=== PATIENT | female | born 1960 | race Caucasian/White ===

== ENCOUNTER 2017-08-18 10:30 | Outpatient (RCR) | payer MEDICAID, SELFPAY ==
--- NOTE | 2017-07-21 13:00 | HP.PTEVAL_ITS ---
Patient's Visit Information JERZY RAMSEY is a 57 year old F referred to Physical Therapy by Ronaldo Hunt with a diagnosis of 3 mon s/p bunionectomy. Date of Evaluation: 07/21/17 Physical Therapist: Sergey Warner DPT, OC - Visit Plan Frequency: 3x /Week Duration: 4-6 Weeks Plan: 3x/week x 4-6 weeks. ROM and mobs to big toe and ankle DF. Strength ankle R and work on weight bearing, weaning out of boot with walker and then wean off walker ...GAIT training, functional transfers and LE strength. - Subjective Subjective: Had surgery for bunionectomy R foot April 29. in boot or cast ever since. Can wean out of boot ... Needs walker with wheels in boot a it is heavy. Have Xray and looks good. Wants to return to wrok at [place] august 27, has been out for 4 months. No foot exercise. Pain is non existent except knee pain R as boot is heavy. Did not need walker prior to surgery. Sleep is OK. Needs help in the form of extra time and help, Put pajamas in last night I. Puts on shoes and boot I. Hobbies include watching TV and can do that. Has not tried to cook and clean. Has steps 3 to enter and 5 inside with 2 rails to hold and did OK just slow. - Objective Walks with ortho boot on R LE slowly but mod I with wh walker. Without boot is slow and hesitant even to stand but can take short 4 inch steps on own with walker. Needs UE to transfer out of chair. Pt has very little confidence with walking without boot. did 4 steps without boot or walker today but they are short and not functional at this point. R ankle AROM -3 DF to 45 PF to 25 inv to 12 ev. L is 4 DF to 50 PF to 30 inv to 15 ev. Strength testing is 4- L ankle and 3+ R ankle. Big toe lacks extension to 10 degrees on R and painful to OP. Painful to resist flex and ext big toe.. metatarsals on R medial foot very stiff vs L.. Knee and hip AROM WFL and strength at 4-/5. Has some R knee pain wiht ambulation in boot. Incision is healed , shows dry skin but no unusual redness or swelling. Pt feels like cannot get shoe over foot or put on boot herself but does this today without help. Poor confidence in her abilities. Avoids WB R in unsupported stance until verbally cued. - Goals Goal 1:: Functional AROM big toe and R ankle without pain Goal Time Frame: 4-6 Weeks Goal 2:: Walk without AD without boot with no pain community distance I. Goal Time Frame: 4-6 Weeks Goal 3:: steps reciprocally with one rail Goal Time Frame: 4-6 Weeks Goal 4:: Exit chair without use UE Goal Time Frame: 4-6 Weeks Goal 5:: Plan to return to work safely Goal Time Frame: 4-6 Weeks Goal 6:: FGA Goal Time Frame: 4-6 Weeks - Rehabilitation Potential Physical Therapy Diagnosis: s/p bunionectomy with poor confidence with gait and stiffness in foot. Rehabilitation Potential: Fair - Anticipated Interventions Patient/Client Instruction: Educate patient on: Condition, Plan of Care For the Purpose of:: To decrease pain, To increase ROM, To improve gait and locomotor functions Therapeutic Exercise to Include: Strength training, Flexibilty training, Gait and locomotor training, Passive ROM, Active ROM For the Purpose of:: To decrease pain, To increase ROM, To improve ability of physical actions for home/community/work/leisure, To improve gait and locomotor functions, To improve safety Manual Therapy Techniques to Include: Mobilization, Soft tissue mobilization For the Purpose of:: To improve ability of physical actions for home/community/ work/leisure, To improve gait and locomotor functions Cryotherapy (ice pack, ice massage): Yes Thermo therapy (hot pack): Yes For the Purpose of:: To improve ability of physical actions for home/community/ work/leisure, To improve gait and locomotor functions Thank you for the opportunity to evaluate your patient. For Medicare and Medicare HMO plans, please review the plan of care and approve it. It will need to be FAXED BACK to us at [phone] for Medicare purposes. Please let me know if there are questions or concerns regarding this plan of care. Physician Signature: Date:
--- NOTE | 2017-08-18 10:43 | HP.PTDCSUM_ITS ---
HP - PT D/C Summary It has been my pleasure to treat JERZY RAMSEY under orders from Ronaldo Hunt , for the diagnosis of 3 month s/p bunionectomy Right for a total of 12 visit(s) . Discharge Date: 08/18/17 Please see the following information for a summary of their discharge status. - Subjective Subjective: Tolerating workout well with minor increase in swelling. Doing ROM at home. No pain for a while. Sleeping OK. Wants to be released to work on the . Pulling on band at home and ROM daily. Activities are normal at home but scary on steps, needs one rail. No boot in a long time. Walked around [place] yesterday without problem. - Objective Objective/Function: heel raises are painfree, Walking is good and without antalgia. Steps reciprocal with one rail, descending lacks confidence. 1 degree DF today. Good strength in all motions, toe extends without pain to functional ROM. OVERALL DOING WELL AND READY TO BE DONE WITH PT, WILLC ONTINUE VIA HEP. - Goals Goal 1:: Functional AROM big toe and R ankle without pain Goal Progress: Goal Met Goal 2:: Walk without AD without boot with no pain community distance I. Goal Progress: Goal Met Goal 3:: steps reciprocally with one rail Goal Progress: Goal Met Goal 4:: Exit chair without use UE Goal Progress: needs UE due to girth Goal 5:: Plan to return to work safely Goal 6:: FGA Goal Progress: Goal Met - Plan Plan: D/C - D/C Information Discharge Comments: Pt to doctor next week and recommend gradual return to work if doctor finds approp. If there are questions or concerns regarding this patient's physical therapy, please feel free to call me at [phone]. Thank you for the referral of this patient. Sincerely, Sergey Warner, DPT, OC
== END 2017-08-18 19:00 | disposition home or self-care (01) ==
LOC: PT 10:30
PROVIDERS: Family Provider Nurse Practitioner Family; PCP Nurse Practitioner Family; Visit Provider Podiatrist Foot & Ankle Surgery
DX: Z98.890 Other specified postprocedural states (principal)
CPT/HCPCS: 97110; 97116; 97140; 97162; 97530

== ENCOUNTER → 2018-04-05 10:11 | Outpatient (CLI) | payer MEDICAID, SELFPAY ==
[2018-03-13 13:05] VITALS: BMI 42.5
--- NOTE | 2018-04-05 10:14 | BI_ITS ---
MAMMOGRAPHY - BILATERAL SCREENING 3-D MARCEL SYNTHESIS REASON FOR EXAM: Female, 58 years old. Bilateral Screening 3-D tomosynthesis PERTINENT HISTORY: Family history of breast cancer in mother and her eighth decade. Multiple benign biopsies. History of left breast pain.. TECHNIQUE: 2-D mammograms and 3-D Marcel synthesis of the breast (s) were performed. CAD was performed. COMPARISON: June 09, 2016, June 19, 2015 FINDINGS: The breast composition is almost entirely fat. There are stable lymph nodes. Scattered benign calcifications are seen. No dense spiculated masses or suspicious microcalcifications are identified. No architectural distortion is identified. There is no skin thickening or retraction. There has been no significant change since the prior study. BI/SCREENING MAMM (CAD), BILAT IMPRESSION: No mammographic signs of malignancy. Routine yearly mammograms recommended. ASSESSMENT CATEGORY: BIRADS Category 2: Benign. A letter regarding these results will be sent to the patient by the facility within 30 days. FOLLOW UP RECOMMENDATION: Yearly follow up mammogram recommended. (A) Approximately 10% of breast cancers are not detected by mammography. A normal mammogram should not delay biopsy of a clinically suspicious abnormality. Electronically Signed: Andre Ayala MD at 11:04 EST , Service support ,
== END ==
PROVIDERS: Family Provider Nurse Practitioner Family; PCP Nurse Practitioner Family
DX: Z12.31 Encounter for screening mammogram for malignant neoplasm of breast (principal)
CPT/HCPCS: 77063; 77067

== ENCOUNTER → 2018-05-08 10:13 | Outpatient (CLI) | payer MEDICAID, SELFPAY ==
[2018-05-08 10:08] VITALS: BMI 41.9
--- NOTE | 2018-05-08 10:15 | RAD_ITS ---
STUDY: X-RAY - RIGHT KNEE REASON FOR EXAM: Female, 58 years old. Pain without injury TECHNIQUE: 4 view(s) of the knee. COMPARISON: None. FINDINGS: Normal visualized distal femur. Normal visualized proximal tibia and fibula. Normal proximal tibiofibular articulation. There is mild degenerative arthrosis of the medial femorotibial compartment. There is mild degenerative arthrosis of the lateral femorotibial compartment. There is severe degenerative arthrosis of the patellofemoral articulation. Patella also. The soft tissue structures are unremarkable. RAD/Knee 4 or More Views IMPRESSION: Patella catherine and severe patellofemoral osteoarthritis. Mild medial and lateral compartment osteoarthritis. Electronically Signed: Servando Cuba MD at 10:37 EST Tel , Service support ,
== END ==
PROVIDERS: Family Provider Nurse Practitioner Family; PCP Nurse Practitioner Family; Referring Provider Orthopaedic Surgery; Visit Provider Orthopaedic Surgery
DX: M25.561 Pain in right knee (principal)
CPT/HCPCS: 73564

== ENCOUNTER 2018-06-03 13:22 | Emergency (ER) | payer MEDICAID, SELFPAY ==
[2018-06-03 12:52] VITALS: BMI 41.9
[2018-06-03 13:24] VITALS: BP 158/88; PULSE 69; RESP 18; TEMP 37.1; O2SAT 100; BMI 41.6
--- NOTE | 2018-06-03 13:57 | RAD_ITS ---
STUDY: X-RAY CHEST REASON FOR EXAM: Female, 58 years old. Back pain TECHNIQUE: PA and lateral views of the chest. COMPARISON: 02/01/2016 FINDINGS: EKG leads project over the chest. The lungs are clear and expanded. There is no demonstrated pleural abnormality. Normal size heart. Normal mediastinum and samy. Normal visualized pulmonary arteries. Normal visualized aortic arch and descending thoracic aorta. There are diffuse degenerative changes of the visualized thoracic spine. Normal visualized ribs, clavicles, and shoulders. There is no demonstrated abnormality of the visualized soft tissue structures of the upper abdomen. RAD/Chest PA and Lateral IMPRESSION: Stable, nonacute x-ray examination of the chest. Electronically Signed: Torrey Cho MD at 15:24 EST , Service support ,
--- NOTE | 2018-06-03 13:57 | EKG12_ITS ---
Test Reason : SHOULDER BLADE PAIN Blood Pressure : / mmHG Vent. Rate : 064 BPM Atrial Rate : 064 BPM P-R Int : 150 ms QRS Dur : 096 ms QT Int : 442 ms P-R-T Axes : 052 009 022 degrees QTc Int : 455 ms Normal sinus rhythm Normal ECG Confirmed by MONICA SORTO, OMAYRA ([id number]), sports editor PRUDENCE HOGAN ([id number]) on 06/06/2018 4:50:33 PM Referred By: MARY KATE Confirmed By:OMAYRA ANDERSON MD
[2018-06-03] MEDS: Ketorolac 30 MG/ML Syringe IV (14:34)
[2018-06-03 14:59] LABS: Absolute Lymphocyte Count 2.06 X10^3/ul (0.83-4.51); Absolute Neutrophil Count 4.4 X10^3/uL (2.0-7.7); Basophil# 0.06 X10^3/uL; Basophil% 0.8 % (0-1); Eosinophil# 0.38 X10^3/uL; Eosinophils% 5.1 % (0-5); Lymphocyte # 2.06 X10^3/ul (4.0); Lymphocyte % 27.5 % (19-41); Mean Corp Hgb Conc 32.6 g/gl (32-36); Mean Corpuscular Hgb 28.9 pg (27.0-32.0); Mean Corpuscular Volume 88.7 fL (81-99); Mean Platelet Vol. 9.7 fl (6.2-12.0); Monocyte# 0.53 X10^3/uL; Monocyte% 7.1 % (0-10); Neutrophil # 4.44 X10^3/uL (2.7-7.7); Neutrophil % 59.2 % (47-70); Platelet Count 264 K/mm3 (150-450); RBC Distribution Width CV 13.5 % (11.6-14.6); RBC Distribution Width SD 43.8 fl (35.1-43.9); Red Blood Count 4.85 M/mm3 (4.2-5.4); White Blood Count 7.5 K/mm3 (4.4-11.0)
[2018-06-03 15:04] LABS: POSITIVE COUNT NO; POSITIVE DIFFERENTIAL NO; POSITIVE MORPHOLOGY NO
[2018-06-03 15:11] LABS: D-Dimer Quantitative (DVT/PE) 0.38 FEU/ug/m (0.27-0.49)
[2018-06-03 15:14] LABS: ALB/GLOB Ratio 1.1 RATIO (0.9-2.4); AST(SGOT) 28 U/L (15-37); Alanine Aminotransfer ALT/SGPT 27 U/L (13-56); Albumin, Serum 4.1 g/dL (3.2-5.0); Alkaline Phosphatase 109 U/L (45-117); Anion Gap 8 (5-15); BUN 18 mg/dL (7-18); BUN/Creat Ratio 18.5 RATIO (10-20); Calcium,Total 9.5 mg/dL (8.5-10.1); Chloride 103 mmol/L (98-107); Creatinine, Serum 0.97 mg/dL (0.55-1.02); EST Glomerular Filtration Rate 63 mL/min (>60); Est Glom Filt Rate - Afr Amer 76 mL/min (>60); Estimated Creatinine Clearance 67.68 ml/min; Globulin 3.6 g/dL (2.2-4.2); Glucose 88 mg/dL (74-106); Lipase 162 U/L (73-393); Protein, Total 7.7 g/dL (6.4-8.2); Sodium Level 138 mmol/L (136-145)
--- NOTE | 2018-06-03 15:25 | ED.VISSUMM ---
- ER Visit Summary Date of Service: 06/03/18 Chief Complaint: Back pain History of Present Illness: The patient is a 58 F who states that yesterday she began to have a sharp ache in between her shoulder blades. She also noticed slight discomfort in her upper abdomen on the right side. She denies any vomiting or diarrhea. No nausea. History of hypertension high cholesterol and obesity. She went to urgent care and was advised to come to the emergency department. She notes the pain has been constant since yesterday. Physical Examination: Afebrile vital signs stable Gen: Well-nourished well-developed morbidly obese Head: Normocephalic atraumatic Eyes: Perrl EOMI ENT: TMs clear no rhinorrhea moist mucous membranes Neck: Supple no lymphadenopathy no JVD nontender CVS: Regular rate rhythm no murmurs normal S1-S2 Respiratory: No distress clear to auscultation bilaterally chest nontender Abdomen: Soft nontender nondistended normal bowel sounds no masses Back: Nontender Extremity: Nontender no edema Skin: Normal color no rash Neuro: alert orientated ?3 CN II-XII intact normal strength sensation reflexes gait cerebellar Psych: Normal affect normal mood Test Results: EKG showed sinus rhythm at a rate of 64. CBC CMP normal. Troponin negative. D-dimer in the normal range at 0.38. Chest x-ray showed no acute findings. Emergency Department Course and Treatment: Bedside ultrasound of the gallbladder does not demonstrate any obvious cholelithiasis. Patient will be discharged home with supportive care follow-up with primary care. Impression: 1. Acute thoracic back pain 2. Right upper quadrant pain This note was generated with [employer] dictation software. It may contain incorrect words, spelling, and punctuation that were not noted in review of the chart prior to signing ED Disposition - Plan for ED Patient: Disposition: Home or Assisted Living Instructions: ED Neck Back Pain General Referrals: Kylee Doll NP-C [Primary Care Provider] - 3-5 Days if not improving
[2018-06-03 15:51] VITALS: BP 144/80; PULSE 65; RESP 16; O2SAT 98
== END 2018-06-03 15:55 | disposition home or self-care (01) ==
PROVIDERS: Emergency Provider Emergency Medicine; Family Provider Nurse Practitioner Family; PCP Nurse Practitioner Family
DX: M54.6 Pain in thoracic spine (principal); R10.11 Right upper quadrant pain; I10 Essential (primary) hypertension; E78.00 Pure hypercholesterolemia, unspecified; E66.01 Morbid (severe) obesity due to excess calories
CPT/HCPCS: 71046; 80053; 83690; 84484; 85025; 85379; 93005; 96374; 99285; A4216

== ENCOUNTER 2018-06-19 07:44 | Day surgery (SDC) | payer MEDICAID, SELFPAY ==
[2018-05-29 13:09] VITALS: BMI 41.9
[2018-06-19 08:07] VITALS: BP 126/81; PULSE 76; RESP 16; TEMP 36.4; O2SAT 100; BMI 42.2
--- NOTE | 2018-06-19 08:45 | COLBX_PTH ---
PATIENT: JERZY RAMSEY LOC: EN U#:[id number] AGE/SX: 58/F ROOM: RE06/19/[address]: Dr. Ciara Britton MD : [id number] BED: DIS: 06/19/2018 SPEC #: [id number] RECD: 06/19/18 13:19 STATUS: SALLY YAMILET #: [id number] BILL: 06/19/18 08:[address]: Ciara Britton DEPT: SURGICAL PATHOLOGY RECD BY: Tin Howard ENTERED: 06/19/18 13:36 SP TYPE: COLON BX OTHR DR: Kylee Doll, HYDRO PLANT SITE MANAGER-C [facility] Tissues: Sigmoid colon biopsy Procedures: Surgery Specimen Level IV HEADER OPERATION: Colonoscopy (MAC) PRE-OP DIAGNOSIS: History of colon polyps TISSUE SUBMITTED: Sigmoid polyp MICROSCOPIC DIAGNOSIS Sigmoid colon polyp, biopsy: Polypoid fragments of colonic mucosa with focal hyperplastic change suspected. See comment. AM:kimberlyn 06/20/18 COMMENT Neither hypoplastic nor adenomatous change is identified. Clinical correlation is suggested. MICROSCOPIC DESCRIPTION Slides are reviewed. GROSS DESCRIPTION Received in fixative is one container labeled with the patient's name and designated sigmoid polyp. The specimen consists of two irregular fragments of light gracia soft tissue that in aggregate measure 0.6 x 0.2 x 0.1 cm. The specimen is totally submitted in one cassette. / AM:kimberlyn 06/19/18 TC:5 CPT: 77872
[2018-06-19 09:11] VITALS: BP 126/70; BP 126/81; PULSE 68; RESP 18; TEMP 36.8; O2SAT 100
[2018-06-19 09:15] VITALS: BP 118/77; BP 126/81; PULSE 68; RESP 18; O2SAT 100
--- NOTE | 2018-06-19 09:15 | OP.ENDO_ITS ---
06/19/2018 [facility] Re : Colonoscopy procedure for Pattie Grover [facility] This procedure was performed on Tuesday, June 19, 2018. My impressions and recommendations are as follows: Impressions : - Diverticulosis in the sigmoid colon. - One less than 5 mm polyp in the sigmoid colon. - The examination was otherwise normal on direct and retroflexion views. - No specimens collected. Recommendations : - Discharge patient to home. - High fiber diet. - Continue present medications. - Await pathology results. - Repeat colonoscopy in 3 - 5 years for surveillance based on pathology results. My findings are described in the full procedure note, which is enclosed. If I can be of further assistance, please feel free to contact me at Doctor phone number(s): , Work: . Sincerely, MD Ciara Argueta MD 06/19/2018 9:15:10 AM This report has been signed electronically.
[2018-06-19 09:20] VITALS: BP 119/80; BP 126/81; PULSE 67; RESP 18; O2SAT 100
[2018-06-19 09:24] VITALS: BP 118/78; BP 126/81; PULSE 66; RESP 18; TEMP 36.8; O2SAT 100
[2018-06-19 10:05] VITALS: BP 126/81
== END 2018-06-19 09:50 | disposition home or self-care (01) ==
LOC: EN 07:45 → AC 07:46
PROVIDERS: Referring Provider Surgery; Visit Provider Surgery
PROC: 0DJD8ZZ Inspection of Lower Intestinal Tract, Via Natural or Artificial Opening Endoscopic (ICD-10-PCS; CPT 45378; principal; 2018-06-19 08:40)
DX: D12.5 Benign neoplasm of sigmoid colon (principal); K57.30 Diverticulosis of large intestine without perforation or abscess without bleeding; Z86.010 Personal history of colon polyps; Z79.82 Long term (current) use of aspirin; I10 Essential (primary) hypertension; E66.9 Obesity, unspecified; E78.5 Hyperlipidemia, unspecified; Z68.41 Body mass index [BMI] 40.0-44.9, adult
CPT/HCPCS: 45380; 88305; J7120

== ENCOUNTER → 2019-04-06 11:17 | Outpatient (CLI) | payer MEDICAID, SELFPAY ==
[2019-02-05 15:15] VITALS: BMI 42.2
--- NOTE | 2019-04-06 11:22 | BI_ITS ---
MAMMOGRAPHY - BILATERAL SCREENING 3-D TOMOSYNTHESIS REASON FOR EXAM: Female, 59 years old. Routine annual screening mammogram. PERTINENT HISTORY: Family history of breast cancer in mother in a dedicated. Multiple excisional biopsies. TECHNIQUE: 2-D mammograms and 3-D Tomosynthesis of the breast (s) were performed. CAD was performed. COMPARISON: April 05, 2018, April 01, 2017 FINDINGS: The breast composition is almost entirely fat. Scattered benign calcifications are seen. No dense spiculated masses or suspicious microcalcifications are identified. No architectural distortion is identified. There is no skin thickening or retraction. There has been no significant change since the prior study. BI/SCREEN MAMM (CAD) W/MARCEL BILAT IMPRESSION: No mammographic signs of malignancy. Routine yearly mammograms recommended. ASSESSMENT CATEGORY: BIRADS Category 2: Benign. A letter regarding these results will be sent to the patient by the facility within 30 days. FOLLOW UP RECOMMENDATION: Yearly follow up mammogram recommended. (A) Approximately 10% of breast cancers are not detected by mammography. A normal mammogram should not delay biopsy of a clinically suspicious abnormality. Electronically Signed: Andre Ayala MD at 15:39 EST , Service support ,
== END ==
PROVIDERS: Referring Provider Nurse Practitioner Family; Visit Provider Nurse Practitioner Family
DX: Z12.31 Encounter for screening mammogram for malignant neoplasm of breast (principal)
CPT/HCPCS: 77063; 77067

== ENCOUNTER 2019-09-19 14:34 | Emergency (ER) | payer MEDICARE, MEDICAID, SELFPAY ==
[2019-05-10 15:26] VITALS: BMI 41.8
[2019-09-19 14:35] VITALS: BP 141/83; PULSE 80; RESP 18; TEMP 36.5; O2SAT 94; BMI 40.6
[2019-09-19 15:47] VITALS: BP 141/83; PULSE 80; RESP 18; TEMP 36.5; O2SAT 94
--- NOTE | 2019-09-19 15:55 | ED.VIS.GEN ---
History of Present Illness Chief Complaint: Diarrhea Narrative: Patient is a 59-year-old female who presents with diarrhea. She has had diarrhea for 1 week. This is a few episodes a day. She had 3 episodes yesterday and 2 episodes today. She is had a cough for 1 to 2 weeks. No fevers. No chest pain or shortness of breath. No vomiting or nausea. She was seen in her primary care physician's office and was sent here to the emergency department. They were concerned for possible COVID-19 and also thought the patient may need fluids. Patient denies any pain. Patient denies recent hospitalization or antibiotic use. Past Medical History - Allergies and Home Meds Allergies/Adverse Reactions: Allergies adhesive tape Allergy (Severe, Verified 09/19/19 14:37) Rash codeine Allergy (Verified 09/19/19 14:37) Shortness of breath Penicillins Allergy (Verified 09/19/19 14:37) Unknown Primary Care Physician: Kylee Doll NP-C [Primary Care Provider] - Past Medical History: - - Hypertension hyperlipidemia Surgical History: for DUB....no hormone replacement other than OTC, bunions Smoking Status: Never smoker Review of Systems All systems negative except as indicated General: Denies: Fever Cardiovascular: Denies: Chest pain Respiratory: Reports: Cough. Denies: Dyspnea Gastrointestinal: Reports: Diarrhea. Denies: Abdominal pain, Nausea, Vomiting Musculoskeletal: Denies: Myalgias, Arthralgias Skin: Denies: Rash Neurological: Denies: Headache Physical Exam Vital Signs/Narrative: Vital Signs Temp Pulse Resp BP Pulse Ox 09/19/19 15:47 97.7 F L 80 18 141/83 H 94 09/19/19 14:35 97.7 F L 80 18 141/83 H 94 Inital Vital Signs reviewed: Yes General: Well nourished Head: Normocephalic Eyes: EOMI ENT: Moist mucous membranes Neck: Supple Cardiovascular: Regular rate, Regular rhythm Respiratory: No distress, CTA bilaterally Abdomen: Soft, Nontender, Nondistended, Normal bowel sounds Extremities: Nontender Skin: Normal color Neurological: Alert Psychological: Normal affect Diagnostic/Tx/Re-eval Laboratory Results 09/19/19 09/19/19 16:38 16:38 WBC 3.8 L RBC 4.95 Hgb 14.2 Hct 44.0 MCV 88.9 MCH 28.7 MCHC 32.3 RDW Std Deviation 42.0 RDW Coeff of Kevyn 12.9 Plt Count 179 MPV 9.8 Immature Gran % (Auto) 0.300 Neut % (Auto) 55.7 Lymph % (Auto) 33.6 [place] % (Auto) 7.2 Eos % (Auto) 2.7 Baso % (Auto) 0.5 Absolute Neuts (auto) 2.1 Absolute Lymphs (auto) 1.26 Nucleated RBC % 0 Sodium 139 Potassium 2.9 L Chloride 103 Carbon Dioxide 31.0 Anion Gap 5 BUN 12 Creatinine 1.08 H Estim Creat Clear Calc 60.06 Est GFR (MDRD) Af Amer 67 Est GFR (MDRD) Non-Af 56 L BUN/Creatinine Ratio 11.1 Glucose 102 Calcium 9.2 - Medical Decision Making COVID testing was sent. Labs notable for white blood cell count 3.8, potassium 2.9. Patient was given oral potassium. Patient was provided with prescription for short course of oral potassium. I also wrote a prescription for Lomotil. Patient understands to return for new or worsening symptoms otherwise to follow-up as an outpatient and she was discharged home. ED Disposition - Plan for ED Patient: Disposition: Home or Assisted Living Diagnosis: Diarrhea Instructions: Treating Diarrhea Prescriptions: Diphenoxylate HCl/Atropine [Lomotil 2.5-0.025 mg Tablet] 2 tab PO Q6H PRN PRN 2 Days #16 tab PRN Reason: Diarrhea Prescription Printed Referrals: Kylee Doll, SECURITY SYSTEMS ADMINISTRATOR-C [Primary Care Provider] -
[2019-09-19 16:54] LABS: Absolute Lymphocyte Count 1.26 X10^3/uL (0.83-4.51); Absolute Neutrophil Count 2.1 X10^3/uL (2.0-7.7); Basophil# 0.02 X10^3/uL; Basophil% 0.5 % (0-1); Eosinophils% 2.7 % (0-5); Hemoglobin 14.2 g/dL (12.0-15.0); Lymphocyte # 1.26 X10^3/ul (4.0); Lymphocyte % 33.6 % (19-41); Mean Corp Hgb Conc 32.3 g/dL (32-36); Mean Corpuscular Hgb 28.7 pg (27.0-32.0); Mean Corpuscular Volume 88.9 fL (81-99); Mean Platelet Vol. 9.8 fl (6.2-12.0); Monocyte# 0.27 X10^3/uL; Monocyte% 7.2 % (0-10); NRBC Flagged by Analyzer 0 % (0-5); Neutrophil # 2.09 X10^3/uL (2.7-7.7); Neutrophil % 55.7 % (47-70); Platelet Count 179 K/mm3 (150-450); RBC Distribution Width CV 12.9 % (11.6-14.6); Red Blood Count 4.95 M/mm3 (4.2-5.4); White Blood Count 3.8 K/mm3 (4.4-11.0)
[2019-09-19] MEDS: 0.9% Normal Saline 1,000 ML 999 ML IV (16:57)
[2019-09-19 17:07] LABS: Anion Gap 5 (5-15); BUN 12 mg/dL (7-18); BUN/Creat Ratio 11.1 RATIO (10-20); Calcium,Total 9.2 mg/dL (8.5-10.1); Chloride 103 mmol/L (98-107); Creatinine, Serum 1.08 mg/dL (0.55-1.02); EST Glomerular Filtration Rate 56 mL/min (>60); Est Glom Filt Rate - Afr Amer 67 mL/min (>60); Estimated Creatinine Clearance 60.06 ml/min; Glucose 102 mg/dL (74-106); Potassium 2.9 mmol/L (3.5-5.1); Sodium Level 139 mmol/L (136-145)
[2019-09-19 18:15] VITALS: BP 127/77; PULSE 67; RESP 16; TEMP 37.1; O2SAT 98
--- NOTE | 2019-09-20 10:14 | ED.RN ---
Attempted to call pt with covid results. Had to leave a message to call ER back
--- NOTE | 2019-09-20 16:27 | ED.RN ---
pt called with pos results for covid. pt advised that health department will be contacting her
== END 2019-09-19 18:30 | disposition home or self-care (01) ==
PROVIDERS: Emergency Provider Emergency Medicine; PCP Nurse Practitioner Family
DX: R19.7 Diarrhea, unspecified (principal); R05 Cough; I10 Essential (primary) hypertension; E78.5 Hyperlipidemia, unspecified; Z88.0 Allergy status to penicillin
CPT/HCPCS: 80048; 85025; 87635; 96360; 99285; G2023; J7030; U0003

== ENCOUNTER → 2019-10-14 19:20 | Outpatient (CLI) | payer MEDICARE, MEDICAID, SELFPAY ==
[2019-09-19 14:35] VITALS: BMI 40.6
== END ==
PROVIDERS: PCP Nurse Practitioner Family
DX: U07.1 COVID-19 (principal)
CPT/HCPCS: 87635; G2023; U0003

== ENCOUNTER → 2020-02-19 10:08 | Outpatient (CLI) | payer MEDICARE, MEDICAID, SELFPAY ==
[2020-02-19 11:08] LABS: Absolute Lymphocyte Count 1.86 X10^3/uL (0.83-4.51); Absolute Neutrophil Count 5.7 X10^3/uL (2.0-7.7); Basophil% 1.2 % (0-1); Eosinophil# 0.43 X10^3/uL; Hemoglobin 13.8 g/dL (12.0-15.0); Lymphocyte # 1.86 X10^3/ul (4.0); Lymphocyte % 21.5 % (19-41); Mean Corp Hgb Conc 32.1 g/dL (32-36); Mean Corpuscular Hgb 28.7 pg (27.0-32.0); Mean Corpuscular Volume 89.4 fL (81-99); Mean Platelet Vol. 10.1 fl (6.2-12.0); Monocyte# 0.59 X10^3/uL; Monocyte% 6.8 % (0-10); NRBC Flagged by Analyzer 0 % (0-5); Neutrophil # 5.67 X10^3/uL (2.7-7.7); Neutrophil % 65.3 % (47-70); Platelet Count 277 K/mm3 (150-450); RBC Distribution Width CV 12.8 % (11.6-14.6); RBC Distribution Width SD 42.4 fl (35.1-43.9); Red Blood Count 4.81 M/mm3 (4.2-5.4); White Blood Count 8.7 K/mm3 (4.4-11.0)
[2020-02-19 11:33] LABS: ALB/GLOB Ratio 0.9 RATIO (0.9-2.4); AST(SGOT) 21 U/L (15-37); Alanine Aminotransfer ALT/SGPT 27 U/L (13-56); Albumin, Serum 3.7 g/dL (3.2-5.0); Alkaline Phosphatase 169 U/L (45-117); Anion Gap 5 (5-15); BUN 15 mg/dL (7-18); BUN/Creat Ratio 15.8 RATIO (10-20); Calcium,Total 9.4 mg/dL (8.5-10.1); Chloride 102 mmol/L (98-107); Cholesterol 187 mg/dL (200); Creatinine, Serum 0.95 mg/dL (0.55-1.02); EST Glomerular Filtration Rate 64 mL/min (>60); Est Glom Filt Rate - Afr Amer 78 mL/min (>60); Globulin 4.1 g/dL (2.2-4.2); Glucose 92 mg/dL (74-106); High Density Lipoprotein 56 mg/dL; Protein, Total 7.8 g/dL (6.4-8.2); Sodium Level 139 mmol/L (136-145); Triglycerides 150 mg/dL; Very Low Density Lipoprotein 30 mg/dL (5-40)
[2020-02-19 11:34] LABS: Vitamin D,25 Hydroxy 74.6 ng/mL
== END ==
DX: E78.5 Hyperlipidemia, unspecified (principal); E55.9 Vitamin D deficiency, unspecified; R01.1 Cardiac murmur, unspecified
CPT/HCPCS: 36415; 80053; 80061; 82306; 85025

== ENCOUNTER → 2020-04-22 10:26 | Outpatient (CLI) | payer MEDICARE, MEDICAID, SELFPAY ==
--- NOTE | 2020-04-22 10:29 | BI_ITS ---
MAMMOGRAPHY - BILATERAL SCREENING REASON FOR EXAM: Female, 60 years old. Routine annual screening examination. PERTINENT HISTORY: Mother with breast cancer. Grandmother with breast cancer. History of remote bilateral excisional breast biopsies. TECHNIQUE: Digital bilateral breast marcel (3D mammographic acquisition) in the CC and MLO projections. 2-D mediolateral oblique (MLO) and craniocaudad (CC) views of both breasts were obtained. CAD: Full Field Digital Mammography with Computer Added Detection was performed. COMPARISON: Comparison is made with prior study dated 04/06/2019 and 04/05/2018. FINDINGS: Breast Composition: There are scattered areas of fibroglandular density. There are no dominant masses or suspicious calcifications. No other significant abnormalities are identified. There has been no significant change since the prior study. BI/SCREEN MAMM (CAD) W/MARCEL BILAT IMPRESSION: Stable bilateral screening mammogram. Yearly follow-up mammogram recommended. (A) ASSESSMENT CATEGORY: BIRADS Category 1: Negative. A letter regarding these results will be sent to the patient by the facility within 30 days. Approximately 10% of breast cancers are not detected by mammography. A normal mammogram should not delay biopsy of a clinically suspicious abnormality. [id number] Electronically Signed: Pb Garcia, at 12:13 EST , Service support ,
== END ==
DX: Z12.31 Encounter for screening mammogram for malignant neoplasm of breast (principal); Z80.3 Family history of malignant neoplasm of breast
CPT/HCPCS: 77063; 77067

== ENCOUNTER → 2020-06-02 10:18 | Outpatient (CLI) | payer MEDICARE, MEDICAID, SELFPAY ==
[2020-05-05 10:24] VITALS: BMI 42.4
[2020-06-02 12:11] LABS: AST(SGOT) 27 U/L (15-37); Alanine Aminotransfer ALT/SGPT 33 U/L (13-56); Albumin, Serum 3.6 g/dL (3.2-5.0); Alkaline Phosphatase 147 U/L (45-117); Bilirubin, Direct 0.16 mg/dL (0.00-0.30); Cholesterol 205 mg/dL (200); High Density Lipoprotein 60 mg/dL; Protein, Total 7.6 g/dL (6.4-8.2); Triglycerides 185 mg/dL; Very Low Density Lipoprotein 37 mg/dL (5-40)
== END ==
DX: E78.5 Hyperlipidemia, unspecified (principal)
CPT/HCPCS: 36415; 80061; 80076

== ENCOUNTER → 2020-08-06 09:58 | Outpatient (CLI) | payer MEDICARE, MEDICAID, SELFPAY ==
[2020-05-05 10:24] VITALS: BMI 42.4
[2020-08-06 10:57] LABS: Alkaline Phosphatase 130 U/L (45-117); T4 Free Direct 1.05 ng/dL (0.76-1.46); Thyroid Stim Hormone (TSH) 1.79 uIU/mL (0.358-3.74)
[2020-08-08 16:08] LABS: Alkaline Phosphatase, Serum 130 IU/L (39-117); Bone Fraction 17 % (14-68); Intestinal Fraction 0 % (0-18); Liver Fraction 83 % (18-85)
[2020-08-08 16:47] LABS: Thyroid Peroxidase AB < 9 IU/mL (0-34)
== END ==
DX: F33.0 Major depressive disorder, recurrent, mild (principal)
CPT/HCPCS: 36415; 84075; 84080; 84439; 84443; 86376

== ENCOUNTER → 2020-11-03 12:08 | Outpatient (CLI) | payer MEDICARE, MEDICAID, SELFPAY ==
[2020-05-05 10:24] VITALS: BMI 42.4
--- NOTE | 2020-11-03 12:20 | RAD_ITS ---
STUDY: X-RAY - RIGHT KNEE REASON FOR EXAM: Female, 60 years old. Right knee pain. TECHNIQUE: 4 view(s) of the knee. COMPARISON: None. FINDINGS: Mild osteopenia. Normal visualized distal femur. Normal visualized proximal tibia and fibula. Normal proximal tibiofibular articulation. Moderate arthrosis of the medial, lateral and patellofemoral compartments. Marked lateral subluxation and tilt of the patella. Patella catherine. The soft tissue structures are unremarkable. RAD/Knee 4 or More Views IMPRESSION: Osteopenia with moderate to marked tricompartmental arthrosis with osteophyte formation which has progressed since the comparison study. Patella catherine, unchanged. Electronically Signed: Andre Ayala MD at 9:48 EDT , Service support ,
== END ==
DX: M25.561 Pain in right knee (principal)
CPT/HCPCS: 73564

== ENCOUNTER → 2021-01-09 14:55 | Outpatient (CLI) | payer MEDICARE, MEDICAID, SELFPAY ==
--- NOTE | 2021-01-09 14:55 | MRI_ITS ---
STUDY: MRI LOWER EXTREMITY RIGHT TIBIA/FIBULA WITH AND WITHOUT CONTRAST REASON FOR EXAM: Female, 60 years old. pain, suspect mass -- with gandolinium.-RIGHT tib/fib TECHNIQUE: Standardized fat and water weighted pulse sequences were obtained in all 3 orthogonal planes, post contrast administration. IV 26 cc dotarem was administered for the contrast portion of the examination. COMPARISON: Right knee x-ray dated November 03, 2020 FINDINGS: Mild to moderate subcutaneous edema is present over the anterior aspect of the mid to distal one third tibial shaft. Edema is also present in the overlying fascia and periosteum but no periosteal reaction or thickening is seen. The cortex is normal. Edema related to stress injury or stress reaction is primarily considered. Alternatively focal inflammation/cellulitis can present in this manner. No abscess is present. No soft tissue mass is seen. Normal tibia and fibula, without a periosteal, cortical or cancellous marrow abnormality. Normal anterior, lateral, and posterior calf compartments, with normal muscles, crural fascia and intermuscular septa. There is no solid, cystic or lipomatous mass lesion of the subcutis adipose space. There is no abnormal contrast enhancement. MRI/Lower Ext No Joint W/WO Cont IMPRESSION: 1. Mild to moderate subcutaneous edema is present over the anterior aspect of the mid to distal one third tibial shaft. Edema is also present in the overlying fascia and periosteum but no periosteal reaction or thickening is seen. The cortex is normal. Edema related to stress injury (grade 1) or stress reaction is primarily considered. Alternatively focal inflammation/cellulitis can present in this manner. Electronically Signed: Oswaldo Garcia MD at 22:09 EDT , Service support ,
[2021-01-09 15:16] LABS: CREATININE FINGERSTICK 0.8 mg/dL (0.55-1.02); EGFR FINGERSTICK > 60.0000 mL/min (>60)
== END ==
PROVIDERS: Referring Provider Orthopaedic Surgery; Visit Provider Orthopaedic Surgery
DX: R22.40 Localized swelling, mass and lump, unspecified lower limb (principal)
CPT/HCPCS: 73720; A9575

== ENCOUNTER → 2021-01-21 10:41 | Outpatient (CLI) | payer MEDICARE, MEDICAID, SELFPAY ==
[2021-01-21 11:08] LABS: Absolute Lymphocyte Count 2.23 X10^3/uL (0.83-4.51); Absolute Neutrophil Count 3.7 X10^3/uL (2.0-7.7); Basophil% 1.4 % (0-1); Eosinophil# 0.58 X10^3/uL; Eosinophils% 8.3 % (0-5); Hematocrit 41.1 % (37-47); Hemoglobin 13.4 g/dL (12.0-15.0); Lymphocyte # 2.23 X10^3/ul (0.83-4.51); Lymphocyte % 31.7 % (19-41); Mean Corp Hgb Conc 32.6 g/dL (32-36); Mean Platelet Vol. 9.9 fl (6.2-12.0); Monocyte# 0.44 X10^3/uL; Monocyte% 6.3 % (0-10); NRBC Flagged by Analyzer 0 % (0-5); Neutrophil # 3.66 X10^3/uL (2.7-7.7); Platelet Count 265 K/mm3 (150-450); RBC Distribution Width CV 13.7 % (11.6-14.6); RBC Distribution Width SD 44.6 fl (35.1-43.9); Red Blood Count 4.62 M/mm3 (4.2-5.4)
[2021-01-21 11:49] LABS: ALB/GLOB Ratio 0.9 RATIO (0.9-2.4); AST(SGOT) 16 U/L (15-37); Alanine Aminotransfer ALT/SGPT 28 U/L (13-56); Albumin, Serum 3.5 g/dL (3.2-5.0); Alkaline Phosphatase 123 U/L (45-117); Anion Gap 6 (5-15); BUN 13 mg/dL (7-18); BUN/Creat Ratio 12.9 RATIO (10-20); Calcium,Total 9.2 mg/dL (8.5-10.1); Chloride 105 mmol/L (98-107); Cholesterol 192 mg/dL (200); Creatinine, Serum 1.01 mg/dL (0.55-1.02); EST Glomerular Filtration Rate 60 mL/min (>60); Est Glom Filt Rate - Afr Amer 72 mL/min (>60); Globulin 3.7 g/dL (2.2-4.2); Glucose 91 mg/dL (74-106); High Density Lipoprotein 58 mg/dL; Potassium 3.9 mmol/L (3.5-5.1); Protein, Total 7.2 g/dL (6.4-8.2); Sodium Level 142 mmol/L (136-145); Thyroid Stim Hormone (TSH) 1.35 uIU/mL (0.358-3.74); Triglycerides 196 mg/dL; Very Low Density Lipoprotein 39 mg/dL (5-40)
== END ==
PROVIDERS: Referring Provider Nurse Practitioner Adult Health; Visit Provider Nurse Practitioner Adult Health
DX: E78.5 Hyperlipidemia, unspecified (principal)
CPT/HCPCS: 36415; 80053; 80061; 84443; 85025

== ENCOUNTER 2021-04-29 09:52 | Outpatient (CLI) | payer MEDICARE, MEDICAID, SELFPAY ==
--- NOTE | 2021-04-29 10:20 | RAD_ITS ---
STUDY: X-RAY CHEST REASON FOR EXAM: Female, 61 years old. D #4 COVID. Bronchitis and then tested positive. Cough. TECHNIQUE: PA and lateral views of the chest. COMPARISON: 06/03/2018 FINDINGS: The lungs are clear and expanded. There is no demonstrated pleural abnormality. Normal size heart. Normal mediastinum and samy. Normal visualized pulmonary arteries. Normal visualized aortic arch and descending thoracic aorta. Minimal dependent changes of the thoracic spine. Normal visualized ribs, clavicles, and shoulders. There is no demonstrated abnormality of the visualized soft tissue structures of the upper abdomen. RAD/Chest PA and Lateral IMPRESSION: No acute cardiopulmonary disease. No major interval change. Electronically Signed: Scar Bowers DO at 16:56 EST Tel [phone], Service support ,
[2021-04-29 11:08] LABS: Absolute Lymphocyte Count 2.36 X10^3/uL (0.83-4.51); Absolute Neutrophil Count 3.1 X10^3/uL (2.0-7.7); Basophil# 0.05 X10^3/uL; Basophil% 0.8 % (0-1); Eosinophil# 0.56 X10^3/uL; Eosinophils% 8.7 % (0-5); Hematocrit 42.6 % (37-47); Hemoglobin 13.6 g/dL (12.0-15.0); Lymphocyte # 2.36 X10^3/ul (0.83-4.51); Lymphocyte % 36.6 % (19-41); Mean Corp Hgb Conc 31.9 g/dL (32-36); Mean Corpuscular Hgb 28.7 pg (27.0-32.0); Mean Corpuscular Volume 89.9 fL (81-99); Mean Platelet Vol. 10.1 fl (6.2-12.0); Monocyte# 0.37 X10^3/uL; Monocyte% 5.7 % (0-10); NRBC Flagged by Analyzer 0 % (0-5); Neutrophil # 3.09 X10^3/uL (2.7-7.7); Neutrophil % 47.9 % (47-70); Platelet Count 235 K/mm3 (150-450); RBC Distribution Width CV 13.7 % (11.6-14.6); RBC Distribution Width SD 45.1 fl (35.1-43.9); Red Blood Count 4.74 M/mm3 (4.2-5.4); White Blood Count 6.5 K/mm3 (4.4-11.0)
[2021-04-29 11:52] LABS: ALB/GLOB Ratio 0.9 RATIO (0.9-2.4); AST(SGOT) 21 U/L (15-37); Alanine Aminotransfer ALT/SGPT 32 U/L (13-56); Albumin, Serum 3.4 g/dL (3.2-5.0); Alkaline Phosphatase 114 U/L (45-117); Anion Gap 6 (5-15); BUN 14 mg/dL (7-18); BUN/Creat Ratio 13.3 RATIO (10-20); Bilirubin, Direct 0.14 mg/dL (0.00-0.30); Calcium,Total 9.3 mg/dL (8.5-10.1); Chloride 104 mmol/L (98-107); Cholesterol 189 mg/dL (200); Creatinine, Serum 1.05 mg/dL (0.55-1.02); EST Glomerular Filtration Rate 57 mL/min (>60); Est Glom Filt Rate - Afr Amer 69 mL/min (>60); Globulin 3.9 g/dL (2.2-4.2); Glucose 96 mg/dL (74-106); High Density Lipoprotein 48 mg/dL; Potassium 4.1 mmol/L (3.5-5.1); Protein, Total 7.3 g/dL (6.4-8.2); Sodium Level 141 mmol/L (136-145); Thyroid Stim Hormone (TSH) 1.36 uIU/mL (0.358-3.74); Triglycerides 169 mg/dL; Very Low Density Lipoprotein 34 mg/dL (5-40)
== END 2021-04-29 23:59 | disposition short-term general hospital (02) ==
LOC: LAB 09:54
PROVIDERS: Referring Provider Nurse Practitioner Adult Health; Visit Provider Nurse Practitioner Adult Health
DX: E78.5 Hyperlipidemia, unspecified (principal)
CPT/HCPCS: 36415; 71046; 80053; 80061; 82248; 84443; 85025

== ENCOUNTER 2021-06-04 10:21 | Outpatient (CLI) | payer MEDICARE, MEDICAID, SELFPAY ==
--- NOTE | 2021-06-04 10:26 | BI_ITS ---
MAMMOGRAPHY - BILATERAL SCREENING REASON FOR EXAM: Female, 61 years old. Routine annual screening examination. PERTINENT HISTORY: Mother with breast cancer. Grandmother with breast cancer. History of prior bilateral excisional breast biopsies. TECHNIQUE: Digital bilateral breast marcel (3D mammographic acquisition) in the CC and MLO projections. 2-D mediolateral oblique (MLO) and craniocaudad (CC) views of both breasts were obtained. CAD: Full Field Digital Mammography with Computer Added Detection was performed. COMPARISON: Comparison is made with prior study of 04/22/2020 and 04/06/2019. FINDINGS: Breast Composition: The breasts are almost entirely fatty. There are no dominant masses or suspicious calcifications. No other significant abnormalities are identified. There has been no significant change since the prior study. BI/SCRN MAMM (CAD)W/MARCEL BILAT IMPRESSION: Stable bilateral screening mammogram. Yearly follow-up mammogram recommended. (A) ASSESSMENT CATEGORY: BIRADS Category 1: Negative. A letter regarding these results will be sent to the patient by the facility within 30 days. Approximately 10% of breast cancers are not detected by mammography. A normal mammogram should not delay biopsy of a clinically suspicious abnormality. [id number] Electronically Signed: Pb Garcia MD at 12:13 EST ,
--- NOTE | 2021-06-04 10:29 | BD_ITS ---
STUDY: DUAL ENERGY X-RAY ABSORPTIOMETRY / DXA REASON FOR EXAM: Female, 61 years old. M810 TECHNIQUE: Bone Mineral Density (BMD) measurements of lumbar spine and bilateral hips were obtained. COMPARISON: None. FINDINGS: Lumbar Spine (L1-L4): g/cm2 (0.945) / T-score (-0.3) / Z-score (1.0) Findings are suggestive of normal bone density with a low fracture risk. Left Femur Total: g/cm2 (0.775) / T-score (-1.4) / Z-score (-0.5) Left Femoral Neck: g/cm2 (0.646) / T-score (-1.8) / Z-score (-0.6) Right Femur Total: g/cm2 (0.740) / T-score (-1.7) / Z-score (-0.8) Right Femoral Neck: g/cm2 (0.589) / T-score (-2.3) / Z-score (-1.1) BD/Dexa Bone Density Study IMPRESSION: The patient is considered osteopenic as outlined below according to World Lb Organization (WHO) criteria with a high fracture risk. Reference Information: The T-score is the number of standard deviations above or below the standard which is normal for young adults at their peak bone mineral density. The World Health Organization (WHO) interprets the T-scores as follows: Above -1 Normal bone density Between -1 and -2.5 Osteopenia Equal to / or below -2.5 Osteoporosis As a practical clinical guideline, osteopenia may be graded as follows: Mild -1 through -1.5 Moderate -1.6 through -2.0 Severe -2.1 through -2.4 The Z-score is the number of standard deviations above or below age-matched controls. A Z-score of less than -1.5 would be considered abnormal. References: 1. NIH Osteoporosis and Related Bone Diseases www osteo.org 2. International Society for Clinical Densitometry www iscd.org 3. National Osteoporosis Foundation www nof.org Electronically Signed: Pb Garcia MD at 8:19 EST ,
== END 2021-06-04 23:59 | disposition home or self-care (01) ==
LOC: OPBD 10:24
PROVIDERS: Visit Provider Nurse Practitioner Adult Health
DX: Z12.31 Encounter for screening mammogram for malignant neoplasm of breast (principal); M81.0 Age-related osteoporosis without current pathological fracture
CPT/HCPCS: 77063; 77067; 77080

== ENCOUNTER → 2021-10-15 | Outpatient (CLI) | payer MEDICARE, MEDICAID, SELFPAY ==
--- NOTE | 2021-10-15 09:36 | RAD_ITS ---
STUDY: X-RAY - PARANASAL SINUSES REASON FOR EXAM: Female, 61 years old. ACUTE SINUSITIS TECHNIQUE: 3 view(s) of the paranasal sinuses were obtained. COMPARISON: None. FINDINGS: Partial opacification of the right maxillary sinus. Mild mucosal thickening of the left maxillary sinus. Normal visualized facial bones. The soft tissue structures are unremarkable. RAD/Sinuses min 3 Views IMPRESSION: Partial opacification of the right maxillary sinus. Mucosal thickening of the left maxillary sinus. Electronically Signed: Pb Garcia MD at 10:24 EDT ,
== END | disposition home or self-care (01) ==
LOC: RAD 09:34
PROVIDERS: Referring Provider Nurse Practitioner Adult Health; Visit Provider Nurse Practitioner Adult Health
DX: J01.90 Acute sinusitis, unspecified (principal)
CPT/HCPCS: 70220

== ENCOUNTER → 2021-11-02 | Outpatient (CLI) | payer MEDICARE, MEDICAID, SELFPAY ==
[2021-11-02 11:10] LABS: Absolute Lymphocyte Count 2.11 X10^3/uL (0.83-4.51); Absolute Neutrophil Count 3.4 X10^3/uL (2.0-7.7); Basophil# 0.08 X10^3/uL; Basophil% 1.3 % (0-1); Eosinophil# 0.42 X10^3/uL; Eosinophils% 6.6 % (0-5); Hematocrit 41.5 % (37-47); Hemoglobin 13.5 g/dL (12.0-15.0); Lymphocyte # 2.11 X10^3/ul (0.83-4.51); Lymphocyte % 33.2 % (19-41); Mean Corp Hgb Conc 32.5 g/dL (32-36); Mean Corpuscular Hgb 29.2 pg (27.0-32.0); Mean Corpuscular Volume 89.6 fL (81-99); Mean Platelet Vol. 10.3 fl (6.2-12.0); Monocyte# 0.38 X10^3/uL; NRBC Flagged by Analyzer 0 % (0-5); Neutrophil # 3.35 X10^3/uL (2.7-7.7); Neutrophil % 52.6 % (47-70); Platelet Count 242 K/mm3 (150-450); RBC Distribution Width CV 13.8 % (11.6-14.6); RBC Distribution Width SD 45.1 fl (35.1-43.9); Red Blood Count 4.63 M/mm3 (4.2-5.4); White Blood Count 6.4 K/mm3 (4.4-11.0)
[2021-11-02 11:39] LABS: Anion Gap 1 (5-15); BUN 17 mg/dL (7-18); BUN/Creat Ratio 16.8 RATIO (10-20); Calcium,Total 9.6 mg/dL (8.5-10.1); Chloride 107 mmol/L (98-107); Creatinine, Serum 1.01 mg/dL (0.55-1.02); EST Glomerular Filtration Rate 60 mL/min (>60); Est Glom Filt Rate - Afr Amer 72 mL/min (>60); Glucose 93 mg/dL (74-106); Sodium Level 141 mmol/L (136-145)
== END | disposition home or self-care (01) ==
PROVIDERS: Visit Provider Nurse Practitioner Adult Health
DX: G25.81 Restless legs syndrome (principal); D72.10 Eosinophilia, unspecified
CPT/HCPCS: 36415; 80048; 85025

== ENCOUNTER → 2022-06-10 | Outpatient (CLI) | payer MEDICARE, MEDICAID, SELFPAY ==
--- NOTE | 2022-06-10 10:55 | BI_ITS ---
MAMMOGRAPHY - BILATERAL SCREENING REASON FOR EXAM: Female, 62 years old. Routine annual screening examination. PERTINENT HISTORY: Mother with breast cancer. Grandmother with breast cancer. History of multiple bilateral excisional breast biopsies. TECHNIQUE: Digital bilateral breast marcel (3D mammographic acquisition) in the CC and MLO projections. 2-D mediolateral oblique (MLO) and craniocaudad (CC) views of both breasts were obtained. CAD: Full Field Digital Mammography with Computer Added Detection was performed. COMPARISON: Comparison is made with prior study dated June 04, 2021 and April 22, 2020. FINDINGS: Breast Composition: The breasts are almost entirely fatty. There are no dominant masses or suspicious calcifications. No other significant abnormalities are identified. There has been no significant change since the prior study. BI/SCRN MAMM (CAD)W/MARCEL BILAT IMPRESSION: Stable bilateral screening mammogram. Yearly follow-up mammogram recommended. (A) ASSESSMENT CATEGORY: BIRADS Category 1: Negative. A letter regarding these results will be sent to the patient by the facility within 30 days. Approximately 10% of breast cancers are not detected by mammography. A normal mammogram should not delay biopsy of a clinically suspicious abnormality. [id number] Electronically Signed: Pb Garcia MD at 11:36 EST ,
== END | disposition home or self-care (01) ==
LOC: OPBI 10:52
PROVIDERS: Visit Provider Nurse Practitioner Family
DX: Z12.31 Encounter for screening mammogram for malignant neoplasm of breast (principal)
CPT/HCPCS: 77063; 77067

== ENCOUNTER → 2022-08-10 | Outpatient (CLI) | payer MEDICARE, MEDICAID, SELFPAY ==
[2022-08-10 11:09] LABS: Hematocrit 39.9 % (37-47); Mean Corp Hgb Conc 32.6 g/dL (32-36); Mean Corpuscular Volume 91.9 fL (81-99); Mean Platelet Vol. 10.4 fl (6.2-12.0); Platelet Count 214 K/mm3 (150-450); RBC Distribution Width CV 13.3 % (11.6-14.6); RBC Distribution Width SD 45.8 fl (35.1-43.9); Red Blood Count 4.34 M/mm3 (4.2-5.4); White Blood Count 5.3 K/mm3 (4.4-11.0)
[2022-08-10 11:31] LABS: Hemoglobin A1c 5.1 % (3.8-5.6)
[2022-08-10 11:50] LABS: ALB/GLOB Ratio 1.1 RATIO (0.9-2.4); AST(SGOT) 21 U/L (15-37); Alanine Aminotransfer ALT/SGPT 20 U/L (13-56); Albumin, Serum 3.5 g/dL (3.2-5.0); Alkaline Phosphatase 94 U/L (45-117); Anion Gap 5 (5-15); BUN 15 mg/dL (7-18); BUN/Creat Ratio 14.9 RATIO (10-20); Calcium,Total 9.4 mg/dL (8.5-10.1); Chloride 107 mmol/L (98-107); Cholesterol 230 mg/dL (200); Creatinine, Serum 1.01 mg/dL (0.55-1.02); EST Glomerular Filtration Rate 59 mL/min (>60); Est Glom Filt Rate - Afr Amer 72 mL/min (>60); Globulin 3.2 g/dL (2.2-4.2); Glucose 92 mg/dL (74-106); High Density Lipoprotein 51 mg/dL; Potassium 4.4 mmol/L (3.5-5.1); Protein, Total 6.7 g/dL (6.4-8.2); Sodium Level 143 mmol/L (136-145); Triglycerides 193 mg/dL; Very Low Density Lipoprotein 39 mg/dL (5-40)
== END | disposition home or self-care (01) ==
LOC: LAB 10:35
PROVIDERS: Referring Provider Nurse Practitioner Family; Visit Provider Nurse Practitioner Family
DX: E78.5 Hyperlipidemia, unspecified (principal); E66.9 Obesity, unspecified
CPT/HCPCS: 36415; 80053; 80061; 83036; 85027

== ENCOUNTER 2022-09-27 11:30 | Outpatient (RCR) | payer MEDICARE, MEDICAID, SELFPAY ==
--- NOTE | 2022-08-02 18:08 | HP.PTEVAL_ITS ---
Patient's Visit Information JERZY RAMSEY is a 62 year old F referred to Physical Therapy by Dr. Grace Reyez MD with a diagnosis of MIXED INCONTINENCE. Date of Evaluation: 08/02/22 Physical Therapist: Terri Schaefer PT, Cert MDT - Visit Plan Frequency: 1x/Week Duration: 8-12 WKS Plan: CHECK AUTH. PELVIC FLOOR STRENGTHENING. URINARY RETENTION, URGE AND FREQUENCY EDUCATION. HEALTHY BLADDER HABIT EDUCATION. TRAINING IN COORDINATION OF PELVIC FLOOR MUSCULATURE WITH HIP AND CORE (TRANSVERSE ABDOMINUS) MUSCULATURE. POSTURE CORRECTION/STRENGTHENING. CORE STRENGTHENING. ENOC LE ROM, STRETCHING AND STRENGTHENING. TRAINING IN ABDOMINAL CAVITY PRESSURE MGMT WI TH ADL'S. 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 Disability: YES. R KNEE. Present symptoms: I'M ALWAYS PEEING AND SOMETIMES I DON'T MAKE IT IN TIME. WEARING PADS DAILY - 1-5 PADS PER DAY. Present since: ABOUT A YEAR. Pain Scale: NO. Is it getting better, worse or staying the same: STAYING THE SAME. Commenced as a result of: NO APPARENT REASON. Worse: DRINKING A LOT OF WATER. Better: RESTRICTING WATER. Disturbed sleep: GETTING UP ABOUT 2-3 TIMES A NIGHT TO URINATE AND DOES MAKE IT TO THE BATHROOM IN TIME. Previous history/Previous treatment: UNREMARKABLE. Treatment this episode: PATIENT REPORTS SHE IS ON TWO MEDICINES - ONE DURING THE DAY AND ONE FOR NIGHT. SHE REPORTS THE MEDICINES HAVE NOT HELPED. SHE REPORTS NOTHING HAS HELPED. Coughing/sneezing/straining: NEGATIVE FOR LEAKING PER PATIENT REPORT. Gait: R KNEE PAIN. INTERMITTENT USE OF WALKER. How long can you delay the need to urinate: ABOUT 5 MINUTES. Prolapse (Falling out feeling): NO. Frequency of Urination: ABOUT 6 TIMES A DAY BUT PATIENT REPORTS IT CAN BE MORE. STATES SHE REALLY INS'T SURE HOW OFTEN. Ability to stop urine flow: NO. Ability to initiate urine stream: YES. Dyspareunia: N/A. Bowel Incontinence: NO. Accidents: NO. Unexplained weight loss: NO. Imaging: PATIENT REPORTS TESTING SHOWS SHE IS EMPTYING HER BLADDER GOOD. PMH/Recent major surgery: R KNEE PAIN - NO KNEE SURGERY. GABAPENTEN FOR RLS. HTN. CELEBREX FOR KNEE. R FOOT BUNIONECTOMY. - Objective Sitting/Standing Posture: POOR. SLOUCHED AND UNABLE TO MAINTAIN CORRECTION. Other Observations: INDEP GAIT AND TRANSFERS WITHOUT AD. Sensory deficit: ENOC LE LIGHT TOUCH SENSATION IS GROSSLY INTACT AND SYMMETRICAL. ROM deficit: TIGHT ENOC LE HS'S, QUADS, HIP ADDUCTION, AND ANKLES. Motor deficit: R LE: HIP 4-/5, KNEE 3-/5, ANKLE 5/5. L LE: HIP 4-/5, KNEE 4/5, ANKLE 5/5. Lumbar mvmt loss: flex - NIL. ext - MAHSA. R SG - MAHSA. L SG - MAHSA. PATIENT DENIES LBP WITH LUMBAR ROM TESTING. Core strength: POOR. Palpation: NO ACUTE LUMBAR OR HIP TENDERNESS. PATIENT COMMUNICATES A GOOD UNDERSTANDING OF HOW TO CONTRACT PELVIC FLOOR. FUNCTIONAL SCREEN: Incontinence Impact Questionnaire Score: 14. Urogenital Distress Inventory Score: 13 - Goals Goal 1:: DECREASE FREQUENCY OF URINATION TO NORMAL VOIDING PATTERNS. Goal Time Frame: 8-12 Weeks Goal 2:: DECREASE EPISODES OF URINARY LEAKING TO ONE OR LESS TIMES A DAY Goal Time Frame: 8-12 Weeks Goal 3:: PATIENT WILL SUCCESSFULLY BE ABLE TO DELAY URGE TO URINATE X 30 MIN WITHOUT LEAKING. Goal Time Frame: 8-12 Weeks Goal 4:: PATIENT WILL COMMUNICATE ABILITY TO DO PELVIC FLOOR CONTRACTION X 10 SEC X 10 REPS. Goal Time Frame: 8-12 Weeks Goal 5:: PATIENT WILL BE INDEP WITH HEP ONCE FORMAL PHYSICAL THERAPY CONCLUDES. Goal Time Frame: 8-12 Weeks - Anticipated Interventions Patient/Client Instruction: Educate patient on: Condition, Plan of Care, Risk Factors For the Purpose of:: To improve self management Therapeutic Exercise to Include: Strength training, Endurance training, Flexibilty training, Neuromotor development For the Purpose of:: To improve muscle performance and motor function, To increase tolerance to activity/condition/position, To improve ability of physical actions for home/community/work/leisure Manual Therapy Techniques to Include: Other Comment: MANUAL INTERNAL VAGINAL BIOFEEDBACK NEEDED/AGREED TO BY PATIENT For the Purpose of:: To improve muscle performance and motor function Thank you for the opportunity to evaluate your patient. For Medicare and Medicare HMO plans, please review the plan of care and approve it. It will need to be FAXED BACK to us at [phone] for Medicare purposes. For Medicare only, by signing this I certify the plan of care. Please let me know if there are questions or concerns regarding this plan of care. Physician Signature: Date:
--- NOTE | 2022-12-16 12:12 | HP.PT.NRP ---
Patient Information Patient Information: JERZY RAMSEY was seen in my office for initial evaluation on 08/02/22. The following Plan of Care was established for this patient: POC Established Initial Frequency: 1x/Week Initial Duration: 8-12 WKS Anticipated Interventions Patient/Client Instruction: Educate patient on: Condition, Plan of Care and Risk Factors For the Purpose of:: To improve self management Therapeutic Exercise to Include: Strength training, Endurance training, Flexibilty training and Neuromotor development For the Purpose of:: To improve muscle performance and motor function, To increase tolerance to activity/condition/position and To improve ability of physical actions for home/community/work/leisure Manual Therapy Techniques to Include: Other Comment: MANUAL INTERNAL VAGINAL BIOFEEDBACK NEEDED/AGREED TO BY PATIENT For the Purpose of:: To improve muscle performance and motor function Last Seen Last Seen: This patient was last seen in our office 09/27/22. Pertinent comments regarding their Physical therapy will appear below: This patient has not returned to Physical Therapy and is appropriate to return to MD for further follow-up as needed. At this point I will be discontinuing this patient from physical therapy. I would be happy to see this patient again in the future if found appropriate by the physician. Thank you! Terri Schaefer, PT, Cert MDT
== END 2022-09-27 19:00 | disposition home or self-care (01) ==
LOC: PT 11:30
PROVIDERS: Referring Provider Urology; Visit Provider Urology
DX: N39.46 Mixed incontinence (principal)
CPT/HCPCS: 97162; 97530

== ENCOUNTER → 2022-11-01 | Outpatient (CLI) | payer MEDICARE, MEDICAID, SELFPAY | END | disposition home or self-care (01) | LOC: SL 11:48 | PROVIDERS: PCP Nurse Practitioner Family; Referring Provider Nurse Practitioner Acute Care; Visit Provider Nurse Practitioner Acute Care | DX: Z46.89 Encounter for fitting and adjustment of other specified devices (principal) ==

== ENCOUNTER → 2023-03-04 | Outpatient (CLI) | payer MEDICARE, MEDICAID, SELFPAY | END | disposition home or self-care (01) | LOC: SL 13:05 | PROVIDERS: PCP Nurse Practitioner Family; Referring Provider Nurse Practitioner Acute Care; Visit Provider Nurse Practitioner Acute Care | DX: G47.33 Obstructive sleep apnea (adult) (pediatric) (principal) | CPT/HCPCS: 98960; G0463 ==

== ENCOUNTER → 2023-07-12 | Outpatient (CLI) | payer MEDICARE, MEDICAID, SELFPAY ==
--- NOTE | 2023-07-12 09:06 | BI_ITS ---
MAMMOGRAPHY - BILATERAL SCREENING REASON FOR EXAM: Female, 63 years old. Routine annual screening examination. PERTINENT HISTORY: Mother with breast cancer. Grandmother with breast cancer. Remote bilateral excisional breast biopsies. TECHNIQUE: Digital bilateral breast marcel (3D mammographic acquisition) in the CC and MLO projections. 2-D mediolateral oblique (MLO) and craniocaudad (CC) views of both breasts were obtained. CAD: Full Field Digital Mammography with Computer Added Detection was performed. COMPARISON: Comparison is made with prior study June 10, 2022 and June 04, 2021. FINDINGS: Breast Composition: The breasts are almost entirely fatty. There are no dominant masses or suspicious calcifications. No other significant abnormalities are identified. There has been no significant change since the prior study. BI/SCRN MAMM (CAD)W/MARCEL BILAT IMPRESSION: Stable bilateral screening mammogram. Yearly follow-up mammogram recommended. (A) ASSESSMENT CATEGORY: BIRADS Category 1: Negative. A letter regarding these results will be sent to the patient by the facility within 30 days. Approximately 10% of breast cancers are not detected by mammography. A normal mammogram should not delay biopsy of a clinically suspicious abnormality. [id number] Electronically Signed: Pb Garcia MD at 10:10 EDT ,
== END | disposition home or self-care (01) ==
LOC: OPBI 09:04
PROVIDERS: PCP Nurse Practitioner Family; Referring Provider Nurse Practitioner Family; Visit Provider Nurse Practitioner Family
DX: Z12.31 Encounter for screening mammogram for malignant neoplasm of breast (principal); Z80.3 Family history of malignant neoplasm of breast
CPT/HCPCS: 77063; 77067

== ENCOUNTER → 2023-07-25 | Outpatient (CLI) | payer MEDICARE, MEDICAID, SELFPAY ==
[2023-07-25 10:31] LABS: Absolute Lymphocyte Count 2.12 X10^3/uL (0.83-4.51); Absolute Neutrophil Count 2.7 X10^3/uL (2.0-7.7); Basophil# 0.05 X10^3/uL; Basophil% 0.9 % (0-1); Eosinophil# 0.26 X10^3/uL; Eosinophils% 4.7 % (0-5); Hematocrit 39.9 % (37-47); Hemoglobin 12.7 g/dL (12.0-15.0); Lymphocyte # 2.12 X10^3/ul (0.83-4.51); Lymphocyte % 38.2 % (19-41); Mean Corp Hgb Conc 31.8 g/dL (32-36); Mean Corpuscular Hgb 28.5 pg (27.0-32.0); Mean Corpuscular Volume 89.7 fL (81-99); Mean Platelet Vol. 10.4 fl (6.2-12.0); Monocyte# 0.37 X10^3/uL; Monocyte% 6.7 % (0-10); NRBC Flagged by Analyzer 0 % (0-5); Neutrophil # 2.74 X10^3/uL (2.7-7.7); Neutrophil % 49.3 % (47-70); Platelet Count 209 K/mm3 (150-450); RBC Distribution Width CV 13.9 % (11.6-14.6); RBC Distribution Width SD 45.8 fl (35.1-43.9); Red Blood Count 4.45 M/mm3 (4.2-5.4); White Blood Count 5.6 K/mm3 (4.4-11.0)
[2023-07-25 11:12] LABS: Hemoglobin A1c 5.2 % (3.8-5.6)
[2023-07-25 11:14] LABS: ALB/GLOB Ratio 1.1 RATIO (0.9-2.4); AST(SGOT) 19 U/L (15-37); Alanine Aminotransfer ALT/SGPT 21 U/L (13-56); Albumin, Serum 3.7 g/dL (3.2-5.0); Alkaline Phosphatase 85 U/L (45-117); Anion Gap 4 (5-15); BUN 22 mg/dL (7-18); Calcium,Total 9.4 mg/dL (8.5-10.1); Chloride 106 mmol/L (98-107); Cholesterol 168 mg/dL (200); Creatinine, Serum 1.05 mg/dL (0.55-1.02); EST Glomerular Filtration Rate 57 mL/min (>60); Est Glom Filt Rate - Afr Amer 68 mL/min (>60); Globulin 3.3 g/dL (2.2-4.2); Glucose 89 mg/dL (74-106); High Density Lipoprotein 62 mg/dL; Potassium 4.1 mmol/L (3.5-5.1); Sodium Level 141 mmol/L (136-145); Thyroid Stim Hormone (TSH) 1.99 uIU/mL (0.358-3.74); Triglycerides 132 mg/dL; Very Low Density Lipoprotein 26 mg/dL (5-40)
== END | disposition home or self-care (01) ==
LOC: LAB 09:56
PROVIDERS: PCP Nurse Practitioner Family; Referring Provider Nurse Practitioner Family; Visit Provider Nurse Practitioner Family
DX: E66.9 Obesity, unspecified (principal); G25.81 Restless legs syndrome; G47.00 Insomnia, unspecified
CPT/HCPCS: 36415; 80053; 80061; 83036; 84443; 85025

== ENCOUNTER 2023-08-29 08:04 | Day surgery (SDC) | payer MEDICARE, MEDICAID, SELFPAY ==
--- NOTE | 2023-08-29 | COLBX_PTH ---
PATIENT: JERZY RAMSEY LOC: EN U#:[id number] AGE/SX: 63/F ROOM: RE08/29/[address]: Dr. Ciara Britton MD : 1960 BED: DIS: 08/29/2023 SPEC #: [id number] RECD: 08/29/23 13:51 STATUS: SALLY REIleana #: [id number] BILL: 08/29/23 00:[address]: Ciara Britton DEPT: SURGICAL PATHOLOGY RECD BY: Ronaldo Gauthier ENTERED: 08/29/23 13:51 SP TYPE: COLON BX OTHR DR: Inocencia Gupta, [facility], ENVIRONMENTAL OFFICER-C Tissues: Sigmoid colon biopsy Procedures: Surgery Specimen Level IV HEADER OPERATION: Colonoscopy, polypectomy PRE-OP DIAGNOSIS: History of colonic polyps TISSUE SUBMITTED: Sigmoid polyp MICROSCOPIC DIAGNOSIS Sigmoid colon polyp, biopsy: Hyperplastic polyp. AM/ 08/30/2023 MICROSCOPIC DESCRIPTION Slides are reviewed. GROSS DESCRIPTION Received in fixative is one container labeled with the patient's name and designated Sigmoid polyp. The specimen consists of one irregular fragment of light gracia soft tissue that measures 0.2 x 0.1 x <0.1 cm. The specimen is totally submitted in one cassette. ANA MARIA/ 08/29/2023 TC:5 CPT:60615
[2023-08-29 08:31] VITALS: BP 139/77; PULSE 67; RESP 16; TEMP 36.3; O2SAT 100; BMI 43.0
[2023-08-29] MEDS: Lactated Ringers 1,000 ML 15 ML IV (08:45)
--- NOTE | 2023-08-29 08:56 | H&P.OPEN ---
HPI - General General Date of Service: 08/29/23 HPI Narrative JERZY RAMSEY, is a 63 F who presents for screening colonoscopy due to history of colon polyps. Patient's last colonoscopy was in 06/2018 patient did have colon polyp at that time. Patient denies any family history of colon cancer. Patient's bowel movements daily denies any blood. Patient denies any chronic abdominal pain/nausea/vomiting/reflux. [facility] Medical History (Updated 08/29/23 @ 08:[address] Ciara Britton MD) Wears partial dentures Wears glasses Bipolar disorder Depression Arthritis Bladder disease High cholesterol Easy bruising Restless legs Dietary restriction History of diverticulitis Non-smoker CPAP (continuous positive airway pressure) dependence Sleep apnea History of echocardiogram History of stress test Cardiology follow-up encounter History of irregular heartbeat Hx of colonic polyps Anxiety Bipolar 1 disorder Essential hypertension Diastolic dysfunction Shoulder tendonitis Shoulder pain Hypertension Cardiac murmur Abnormal nuclear stress test Chest pain Obesity Hyperlipidemia Home Medications ?Medication ?Instructions ?Recorded ?Last Taken ?Type aspirin 81 mg chewable tablet 81 mg PO DAILY@0800 ##30 02/03/16 Unknown Rx gabapentin 300 mg capsule 600 mg PO QHS 03/13/18 Unknown History atorvastatin 40 mg tablet 40 mg PO DAILY 12/01/20 Unknown History celecoxib 200 mg capsule 200 mg PO DAILY 05/04/21 Unknown History cholecalciferol (vitamin D3) 125 125 mcg PO DAILY 05/04/21 Unknown History mcg (5,000 unit) capsule ropinirole 0.25 mg tablet 0.25 mg PO QHS 05/04/21 Unknown History divalproex 500 mg tablet,extended 500 mg PO QHS 11/11/21 Unknown History release 24 hr sertraline 50 mg tablet 50 mg PO Q24H 11/11/21 08/29/23 07:00 History tizanidine 4 mg capsule 4 mg PO TID PRN muscle spasticity 10/07/22 Unknown History mirabegron 50 mg tablet,extended 50 mg PO QDAY 06/24/23 Unknown History release 24 hr (Myrbetriq) metoprolol tartrate 25 mg tablet 25 mg PO BID #60 tabs 07/11/23 08/29/23 07:00 Rx Allergy/AdvReac Type Severity Reaction Status Date / Time adhesive tape Allergy Severe Rash Verified 08/29/23 08:29 Penicillins Allergy Severe Anaphylaxis Verified 08/29/23 08:29 cat dander Allergy Intermediate Shortness Verified 08/29/23 08:29 of breath dog dander Allergy Intermediate Shortness Verified 08/29/23 08:29 of breath mold Allergy Intermediate Shortness Verified 08/29/23 08:29 of breath pollen extracts Allergy Intermediate Shortness Verified 08/29/23 08:29 of breath codeine Allergy Shortness Verified 08/29/23 08:29 of breath latex Allergy Rash Verified 08/29/23 08:29 Family History Father CVA (cerebral vascular accident) Grandfather CAD (coronary artery disease) Grandfather CAD (coronary artery disease) Mother Breast cancer Son OUMAR (obstructive sleep apnea) Surgical History (Updated 08/24/23 @ 14:38 by Mona Hanna) History of cardiac catheterization Hx of colonoscopy History of lumpectomy of both breasts History of total hysterectomy History of foot surgery Social History household members: spouse housing: house current occupational status: employed current occupation: [employer]. Works one day weekly Smoking Status: Never smoker alcohol intake: never substance use type: does not use what type of physical activity do you participate in: walking and bicycling do you feel safe at home: Yes Past Medical/Surgical History Planned Operation Planned Operative Procedure/s: COLONOSCOPY S.O.S: No Previous Hospitalizations/Surgeries HX Hospitalizations: No HX of Surgeries: hysterectomy Any Problems With Anesthesia: No You/Your Family Experience Fever (Hyperthermia) With Anes: No Cholinesterase deficiency: No Cardiovascular Hx Chest Pain within Last 2 months: No Hx of Irregular Heartbeat and/or Afib: Yes (heart murmur per pt) Hx Heart Attack: No Hx Congestive Heart Failure: No Hx Rheumatic Fever: No Hx Hypertension: Yes Hx Internal Defibrillator: No Hx Pacemaker: No Hx Cardiac Catheterization: No Hx Cardiac Surgery/Stents/Etc.: No Hx Stress Test: Yes Hx Pain in Legs when Walking/Leg Cramps: No Respiratory Chronic Cough: No HX of Shortness of Breath: No Hoarseness: No Hx Chronic Obstructive Pulmonary Disease (COPD): No Hx Asthma: No Hx Emphysema: No Hx Sleep Apnea: Yes CPAP: Yes BIPAP: No Hx Respiratory Tract Infection/Cold (presently): No Result (for STOP score): Positive Hx Smoking: No Smoking Status: Never smoker Gastrointestinal Hx Gastrointestinal Disorders: No Hx Gastrointestinal Bleed: No Hx Ulcer: No Hx Hiatal Hernia: No Difficulty Chewing/Swallowing: No Special diet followed at home: No Hx Unplanned Weight Loss of 20#: No HX Unplanned Weight Gain of 20#: No Neurological Hx Seizures: No HX Syncope/Blackout Spells/Unconsciousness: No Hx Transient Ischemic Attacks (TIA): No Hx Multiple Sclerosis: No Hx Parkinson's Disease: No Hx Head/Neck Injury: No Hx Headaches: No Hx Back Injury/Pain: Yes Recent Onset of Speech Difficulty: No Restless Legs: No Does patient have nerve stimulator: No Blood Disorder Hx Leukemia: No Bleeding Tendencies: No Hx Deep Vein Thrombosis: No Hx High Cholesterol: Yes Blood Transmitted Disease: No Hx Hepatitis: No Hx Cirrhosis: No Hx Anemia: No Hx Blood Disorders: No Reproduction Is Patient Lactating: No Hx Hysterectomy: No Are You Post Menopause: Yes Genitourinary Hx Renal Disease: No Hx Dialysis: No Musculoskeletal Hx Arthritis: Yes (rt knee) Hx Rheumatoid Arthritis: No Hx Gout: No Recent Onset of an Orthopedic Problem: No Endocrine Hx Diabetes: No Thyroid Disease: No Hx Steroid Therapy: No Psycho/Social Hx Substance Use: No Hx Alcohol Use: No Hx Anxiety: No Hx Depression: No Mental Illness: No Hx Dementia: No Miscellaneous Hx Cancer: No Recent Exposure to Contagious Disease: No Hx of C-Diff: No Any Loose Teeth: No (UPPER PARTIAL) Allergies adhesive tape Allergy (Severe, Verified 08/29/23 08:29) Rash Penicillins Allergy (Severe, Verified 08/29/23 08:29) Anaphylaxis Patient states reaction is unknown, had a reaction as a baby. cat dander Allergy (Intermediate, Verified 08/29/23 08:29) Shortness of breath dog dander Allergy (Intermediate, Verified 08/29/23 08:29) Shortness of breath mold Allergy (Intermediate, Verified 08/29/23 08:29) Shortness of breath pollen extracts Allergy (Intermediate, Verified 08/29/23 08:29) Shortness of breath codeine Allergy (Verified 08/29/23 08:29) Shortness of breath latex Allergy (Verified 08/29/23 08:29) Rash Discharge Is Pt Admitted From a Correction, or a Penitentiary: No Who Could Help: FRIEND After D/C, Where Do you Plan to Go: Return Home Vital Signs Vital Signs Vital Signs: 08/29/23 08:31 08/29/23 08:31 Temperature 97.4 F L Temperature Source Temporal Pulse Rate 67 Respiratory Rate 16 Respiratory Pattern Normal Blood Pressure 139/77 H Blood Pressure Mean 97 Blood Pressure Source Monitor Blood Pressure Position Sitting Blood Pressure Location Right Arm Pulse Ox 100 Oxygen Delivery Method Room Air Weight Weight: 291 lb 0.163 oz Body Mass Index (BMI) 43.0 Physical Exam Const alert, oriented x3 and no apparent distress HEENT normocephalic and head/scalp atraumatic Resp normal respiratory effort Cardio regular rate GI soft to palpation and non-tender; Negative for non-distended Palpation: Negative for guarding Extremity no clubbing, cyanosis or edema Skin no rashes or lesions noted Neuro CN's II-XII intact bilaterally Psych mental status grossly normal Assessment & Plan Assessment/Plan (1) Hx of colonic polyps: Surgery Risks - Colonoscopy I discussed with the patient the risks of the procedure: Yes Risks Include but are not Limited To: Risks include but are not limited to: Bleeding, perforation requiring further surgery, inability to complete colonoscopy requiring barium enema.
[2023-08-29 10:31] VITALS: BP 139/77; BP 95/61; PULSE 61; RESP 16; TEMP 36.2; O2SAT 98
--- NOTE | 2023-08-29 10:32 | OP.CCLET_ITS ---
08/29/2023 Inocencia Gupta [facility] Re : Colonoscopy procedure for Pattie Grover Dear Alonso This procedure was performed on Tuesday, August 29, 2023. My impressions and recommendations are as follows: Impressions : - One less than 5 mm polyp in the sigmoid colon, removed with a hot snare. Resected and retrieved. - The examination was otherwise normal on direct and retroflexion views. Recommendations : - Discharge patient to home. - Resume previous diet. - Continue present medications. - Await pathology results. - Repeat colonoscopy in 5 years for surveillance based on pathology results. My findings are described in the full procedure note, which is enclosed. If I can be of further assistance, please feel free to contact me at Doctor phone number(s): , Work: . Sincerely, MD Ciara Argueta MD 08/29/2023 10:32:18 AM This report has been signed electronically.
--- NOTE | 2023-08-29 10:32 | OP.COLON_ITS ---
Patient Name: Pattie Grover Procedure Date: 08/29/2023 9:46 AM Date of : 1960 Age: 63 Procedure: Colonoscopy Indications: High risk colon cancer surveillance: Personal history of colonic polyps Providers: Ciara Britton MD Medicines: Monitored Anesthesia Care Patient Profile: This is a 63 year old female. Last Colonoscopy: June 2018. Complications: No immediate complications. Procedure: Pre-Anesthesia Assessment: - Prior to the procedure, a History and Physical was performed, and patient medications and allergies were reviewed. The patient's tolerance of previous anesthesia was also reviewed. The risks and benefits of the procedure and the sedation options and risks were discussed with the patient. All questions were answered, and informed consent was obtained. Prior Anticoagulants: The patient has taken no anticoagulant or antiplatelet agents. ASA Grade Assessment: Per anesthesia. After reviewing the risks and benefits, the patient was deemed in satisfactory condition to undergo the procedure. After I obtained informed consent, the scope was passed under direct vision. Throughout the procedure, the patient's blood pressure, pulse, and oxygen saturations were monitored continuously. The Colonoscope was introduced through the anus and advanced to the cecum, identified by the appendiceal orifice, ileocecal valve and palpation. The colonoscopy was performed without difficulty. The patient tolerated the procedure well. The quality of the bowel preparation was good. Scope In: 9:59:32 AM Scope Withdrawal Time 0 hours 14 minutes 2 seconds Scope Out: 10:24:44 AM Total Procedure Duration Time 0 hours 25 minutes 12 seconds Findings: The perianal and digital rectal examinations were normal. A less than 5 mm polyp was found in the sigmoid colon. The polyp was sessile. The polyp was removed with a hot snare. Resection and retrieval were complete. The exam was otherwise without abnormality on direct and retroflexion views. Impression: - One less than 5 mm polyp in the sigmoid colon, removed with a hot snare. Resected and retrieved. - The examination was otherwise normal on direct and retroflexion views. Recommendation: - Discharge patient to home. - Resume previous diet. - Continue present medications. - Await pathology results. - Repeat colonoscopy in 5 years for surveillance based on pathology results. Procedure Code(s): --- Professional --- 48988, PT, Colonoscopy, flexible; with removal of tumor(s), polyp(s), or other lesion(s) by snare technique Diagnosis Code(s): --- Professional --- Z86.010, Personal history of colonic polyps D12.5, Benign neoplasm of sigmoid colon CPT copyright 2021 [employer]. All rights reserved. The codes documented in this report are preliminary and upon space operations officer review may be revised to meet current compliance requirements. MD Ciara Argueta MD 08/29/2023 10:32:18 AM This report has been signed electronically. Number of Addenda: 0 Note Initiated On: 08/29/2023 9:46 AM
[2023-08-29 10:35] VITALS: BP 101/78; BP 139/77; PULSE 57; RESP 16; O2SAT 98
[2023-08-29 10:40] VITALS: BP 108/64; BP 139/77; PULSE 57; RESP 16; O2SAT 99
[2023-08-29 10:45] VITALS: BP 104/63; BP 139/77; PULSE 58; RESP 16; TEMP 36.2; O2SAT 97
[2023-08-29 11:01] VITALS: BP 139/77
== END 2023-08-29 11:13 | disposition home or self-care (01) ==
LOC: EN 08:05 → AC 08:06
PROVIDERS: PCP Nurse Practitioner Family; Referring Provider Nurse Practitioner Family; Visit Provider Surgery
PROC: 0DJD8ZZ Inspection of Lower Intestinal Tract, Via Natural or Artificial Opening Endoscopic (ICD-10-PCS; CPT 45378; principal; 2023-08-29 09:55)
DX: Z12.11 Encounter for screening for malignant neoplasm of colon (principal); F31.9 Bipolar disorder, unspecified; Z79.82 Long term (current) use of aspirin; E78.5 Hyperlipidemia, unspecified; I10 Essential (primary) hypertension; Z86.010 Personal history of colon polyps; D12.5 Benign neoplasm of sigmoid colon
CPT/HCPCS: 45385; 88305; J7120; J2405

== ENCOUNTER → 2023-09-19 | Outpatient (CLI) | payer MEDICARE, MEDICAID, SELFPAY | END | disposition home or self-care (01) | LOC: LABSPEC 15:43 | PROVIDERS: PCP Nurse Practitioner Family; Referring Provider Otolaryngology Otolaryngology/Facial Plastic Surgery; Visit Provider Otolaryngology Otolaryngology/Facial Plastic Surgery | DX: J32.9 Chronic sinusitis, unspecified (principal) | CPT/HCPCS: 87070; 87077; 87186; 87205 ==

== ENCOUNTER → 2024-05-08 | Outpatient (CLI) | payer MEDICARE, MEDICAID, SELFPAY ==
[2024-05-08 13:04] LABS: Absolute Lymphocyte Count 1.75 X10^3/uL (0.83-4.51); Absolute Neutrophil Count 3.3 X10^3/uL (2.0-7.7); Basophil# 0.04 X10^3/uL; Basophil% 0.7 % (0-1); Eosinophil# 0.38 X10^3/uL; Eosinophils% 6.5 % (0-5); Hematocrit 39.8 % (37-47); Hemoglobin 12.9 g/dL (12.0-15.0); Lymphocyte # 1.75 X10^3/ul (0.83-4.51); Lymphocyte % 29.9 % (19-41); Mean Corp Hgb Conc 32.4 g/dL (32-36); Mean Corpuscular Hgb 28.7 pg (27.0-32.0); Mean Corpuscular Volume 88.6 fL (81-99); Monocyte# 0.37 X10^3/uL; Monocyte% 6.3 % (0-10); NRBC Flagged by Analyzer 0 % (0-5); Neutrophil # 3.29 X10^3/uL (2.7-7.7); Neutrophil % 56.3 % (47-70); Platelet Count 180 K/mm3 (150-450); RBC Distribution Width CV 13.2 % (11.6-14.6); RBC Distribution Width SD 42.9 fl (35.1-43.9); Red Blood Count 4.49 M/mm3 (4.2-5.4); White Blood Count 5.9 K/mm3 (4.4-11.0)
[2024-05-08 13:10] LABS: Valproic Acid (Depakene) Level 64 ug/mL (50-100)
[2024-05-08 13:14] LABS: Vitamin D,25 Hydroxy 62.8 ng/mL
[2024-05-08 13:18] LABS: Hemoglobin A1c 5.2 % (3.8-5.6)
[2024-05-08 13:31] LABS: ALB/GLOB Ratio 0.9 RATIO (0.9-2.4); AST(SGOT) 14 U/L (15-37); Alanine Aminotransfer ALT/SGPT 18 U/L (13-56); Albumin, Serum 3.4 g/dL (3.2-5.0); Alkaline Phosphatase 112 U/L (45-117); Anion Gap 8 (5-15); BUN 14 mg/dL (7-18); Calcium,Total 9.3 mg/dL (8.5-10.1); Chloride 105 mmol/L (98-107); Cholesterol 160 mg/dL (200); Creatinine, Serum 1.17 mg/dL (0.55-1.02); EST Glomerular Filtration Rate 50 mL/min (>60); Est Glom Filt Rate - Afr Amer 60 mL/min (>60); Free T3 2.8 pg/mL (2.18-3.98); Globulin 3.6 g/dL (2.2-4.2); Glucose 102 mg/dL (74-106); High Density Lipoprotein 51 mg/dL; Potassium 3.5 mmol/L (3.5-5.1); Sodium Level 142 mmol/L (136-145); Triglycerides 115 mg/dL; Very Low Density Lipoprotein 23 mg/dL (5-40)
== END | disposition home or self-care (01) ==
PROVIDERS: PCP Nurse Practitioner Family; Visit Provider Nurse Practitioner
DX: F31.81 Bipolar II disorder (principal); E66.9 Obesity, unspecified; G25.81 Restless legs syndrome; G47.00 Insomnia, unspecified
CPT/HCPCS: 36415; 80053; 80061; 80164; 82306; 83036; 84439; 84443; 84481; 85025

== ENCOUNTER → 2024-08-16 | Outpatient (CLI) | payer MEDICARE, MEDICAID, SELFPAY ==
--- NOTE | 2024-08-16 10:21 | BI_ITS ---
EXAM: SCRN MAMM (CAD)W/MARCEL BILAT DATE: 08/16/2024 CLINICAL HISTORY: F, Age 64 y/o , SCREENING BREAST CANCER RISK ASSESSMENT: Not reported TECHNIQUE: Bilateral screening digital breast tomosynthesis with 2D and 3D images. Computer aided detection. COMPARISON: Prior exam(s) were compared FINDINGS: TISSUE DENSITY: The breast tissue is composed of scattered area of fibroglandular density. Bilateral Breast Mammographic Findings: No suspicious masses, calcifications or other abnormalities are identified. BI/SCRN MAMM (CAD)W/MARCEL BILAT IMPRESSION: OVERALL FINAL ASSESSMENT: BIRADS 1 NEGATIVE RECOMMENDATION: Routine annual follow-up in 1 Year A letter with findings and recommendations will be mailed to the patient. Reading Location: [id number]
--- NOTE | 2024-08-16 10:21 | BD_ITS ---
PROCEDURE: DEXA BONE DENSITY STUDY 08/16/2024 REASON FOR EXAM: F, age 64 y/o . Postmenopausal. TECHNIQUE: DEXA scan of sites with data reported below. Scanner utilized: [employer]. REFERENCE LINKS: [facility] COMPARISON: DEXA examination dated 06/04/2021 FINDINGS: BMD and T-SCORES Lumbar spine: 0.988 g/cm2, T-score -0.5. Z-score measures 1.0 Levels: L1 through L4 Left femoral neck: 0.549 g/cm2, T-score -2.7 Z-score measures -1.3. Left total hip: 0.723 g/cm2, T-score -1.8. Z-score measures -0.7. Change from prior: There has been a significant decrease in the bone mineral density of the left hip by 6.7% since the prior study dated 06/04/2021. Right femoral neck: 0.555 g/cm2, T-score -2.6. Z-score measures -1.3. Right total hip: 0.671 g/cm2, T-score -2.2. Z-score measures -1.1. Change from prior: There has been a decrease in the bone mineral density of the right hip by 9.3% since the prior study dated 06/04/2021.. The World Health Organization has defined the following categories based on bone density: Normal bone density: T-score equal to or greater than -1.0 Osteopenia: T-score between -1.0 and -2.5 Osteoporosis: T-score equal to or less than -2.5 FRAX (or Comparable) Fracture Risk Assessment: 10 Year Probability of Fracture: Major Osteoporotic Fracture: 11% Hip Fracture: 2.1% (Note: FRAX is not to be reported in setting of normal range bone density, osteoporosis on DEXA, known history of osteoporosis, prior osteoporotic hip or vertebral fracture, or for any patient undergoing pharmacological treatment for bone loss.) The National Osteoporosis Foundation (NOF) recommends pharmacological treatment for patients with a FRAX 10-year risk of 3% or higher for a hip fracture, or 20% or higher for a major osteoporotic fracture, to prevent osteoporosis and reduce fracture risk. The patient does meet the pharmacological treatment recommendations for prevention of osteoporosis. BD/Dexa Bone Density Study IMPRESSION: OSTEOPOROSIS. Recommend follow-up as clinically warranted. Reading Location: [id number]
== END | disposition home or self-care (01) ==
LOC: OPBD 10:19
PROVIDERS: PCP Nurse Practitioner Family; Referring Provider Nurse Practitioner Family; Visit Provider Nurse Practitioner Family
DX: Z12.31 Encounter for screening mammogram for malignant neoplasm of breast (principal); Z13.820 Encounter for screening for osteoporosis; M81.0 Age-related osteoporosis without current pathological fracture
CPT/HCPCS: 77063; 77067; 77080

== ENCOUNTER 2024-12-03 09:41 | Outpatient (RCR) | payer MEDICARE, MEDICAID, SELFPAY ==
--- NOTE | 2024-12-03 10:45 | HP.PTEVAL ---
Patient's Visit Information Visit Information Visit Information: JERZY RAMSEY is a 64 year old F referred to Physical Therapy by Inocencia Gupta Jef, IN[employer] MA[employer]GER-[employer] with a diagnosis of osteoporosis. Date of Evaluation: 12/03/24 Physical Therapist: Samantha Erickson MPT Visit Plan Frequency: 2x /Week Duration: 2 Months Plan: Pt will bring rollator next visit...may want to time 1 lap around dept to see how we increase in time and encourage good gait mechanics. 2X/ week for 8 week for LE strength (WB activities but LAQ are difficult), gait training, functional transfers (sit to stand and step ups) (pt did not want to do steps at initial eval due to them being difficult for her). with HEP May do some machines once // bars and mat exercises get easier. Subjective Subjective: Pt fell last by tripping over a ladder and broke ribs on her L side. She has bruising. She is bone on bone on the R knee but she fell on that knee and she will see him today for that. She uses a walker when she has to go long distances. She has only fell once in the last 3 months. She has osteoporosis and she was put on meds also Dr said she needs strengthening. She has a stationary bike at home. She has a rollator as well that she uses to walk outside with. She had a hard time getting up when she fell and had to crawl and push herself up and it took a loot of effort. Stairs: uses handrail and goes recip. Sit to stand she uses arms. Pain L rib pain: Pain Intensity (Out of 10): 5 Objective Objective: Gait: walks with short stride, WBOS, Steppage gait with no heel to toe with arms wide spread. Encouraged pt to bring rollator next time to help with steadiness LE MMT: R hip flex 10.3 and L 8.1 R knee ext 9 and L 10.1 R knee flex 6.4 and L 6.2 R supine hip abd 6.9 and L 6.7 Standing heel raises: 1/2 normal ROM and unable to do standing toe raises. Able to do sitting toe raises X 10 Sit to stand: Uses arms and does not use him extension very well. Bridge: 1/4 normal ROM Pt did not want to do the stairs. Balance/Special Test Scores Lower Extremity Functional Score: 63 Goals Goal 1:: I HEP Goal Time Frame: 6-8 Weeks Goal 2:: Increase LE strength (at the time of the eval: LE MMT: R hip flex 10.3 and L 8.1 R knee ext 9 and L 10.1 R knee flex 6.4 and L 6.2 R supine hip abd 6.9 and L 6.7). Goal Time Frame: 6-8 Weeks Goal 3:: Sit to stand with 1 UE X 3 in a row Goal Time Frame: 6-8 Weeks Goal 4:: Walk a lap around dept with rollator and increase time and gait mechanics Goal Time Frame: 6-8 Weeks Rehabilitation Potential Rehabilitation Potential: Good Anticipated Interventions Patient/Client Instruction: Educate patient on: Condition and Plan of Care For the Purpose of:: To decrease pain, To increase ROM, To improve muscle performance and motor function, To improve ability to perform ADL's, To increase tolerance to activity/condition/position, To improve performance and independence with ADL's, To decrease level of supervision to perform tasks, To improve ability of physical actions for home/community/work/leisure, To improve gait and locomotor functions, To improve health of tissue, To decrease soft tissue restriction, To increase flexibility/ROM and To improve endurance Therapeutic Exercise to Include: Strength training, Endurance training, Balance training, Postural training, Flexibilty training, Gait and locomotor training, Neuromotor development, Active ROM and Dynamic Lumbar Stabilization For the Purpose of:: To decrease pain, To increase ROM, To improve nutrient delivery to tissue, To improve muscle performance and motor function, To improve ability to perform ADL's, To increase tolerance to activity/condition/position, To improve performance and independence with ADL's, To decrease level of supervision to perform tasks, To improve ability of physical actions for home/community/work/leisure, To improve gait and locomotor functions, To improve health of tissue, To decrease soft tissue restriction, To increase flexibility/ROM, To improve endurance, To improve balance and To improve safety with gait Functional Training to Include: Gait training For the Purpose of:: To improve gait and locomotor functions and To improve safety with gait Text: Thank you for the opportunity to evaluate your patient. For Medicare and Medicare HMO plans, please review the plan of care and approve it. It will need to be FAXED BACK to us at [phone] for Medicare purposes. For Medicare only, by signing this I certify the plan of care. Please let me know if there are questions or concerns regarding this plan of care. Physician Signature: Date:
--- NOTE | 2025-01-21 09:22 | HP.PTDCNRP_ITS ---
Patient Information Patient Information: JERZY RAMSEY was seen in my office for initial evaluation on 12/03/24. The following Plan of Care was established for this patient: POC Established Initial Frequency: 2x /Week Initial Duration: 2 Months Anticipated Interventions Patient/Client Instruction: Educate patient on: Condition and Plan of Care For the Purpose of:: To decrease pain, To increase ROM, To improve muscle performance and motor function, To improve ability to perform ADL's, To increase tolerance to activity/condition/position, To improve performance and i ndependence with ADL's, To decrease level of supervision to perform tasks, To improve ability of physical actions for home/community/work/leisure, To improve gait and locomotor functions, To improve health of tissue, To decrease soft tissue restriction, To increase flexibility/ROM and To improve endurance Therapeutic Exercise to Include: Strength training, Endurance training, Balance training, Postural training, Flexibilty training, Gait and locomotor training, Neuromotor development, Active ROM and Dynamic Lumbar Stabilization For the Purpose of:: To decrease pain, To increase ROM, To improve nutrient delivery to tissue, To improve muscle performance and motor function, To improve ability to perform ADL's, To increase tolerance to activity/condition/position, To improve performance and independence with ADL's, To decrease level of supervision to perform tasks, To improve ability of physical actions for home/community/work/leisure, To improve gait and locomotor functions, To improve health of tissue, To decrease soft tissue restriction, To increase flexibility/ROM, To improve endurance, To improve balance and To improve safety with gait Functional Training to Include: Gait training For the Purpose of:: To improve gait and locomotor functions and To improve safety with gait Last Seen Last Seen: This patient was last seen in our office 12/03/24. Pertinent comments regarding their Physical therapy will appear below: DC PT as pt has not been here since initial eval over 40 days ago At this point I will be discontinuing this patient from physical therapy. I would be happy to see this patient again in the future if found appropriate by the physician. Thank you! Samantha Erickson, MPT Balance/Gait/Functional tests Balance/Special Test Scores Lower Extremity Functional Score: 63
== END 2024-12-03 19:00 | disposition home or self-care (01) ==
LOC: PT 09:41
PROVIDERS: PCP Nurse Practitioner Family; Referring Provider Nurse Practitioner Family; Visit Provider Nurse Practitioner Family
DX: M81.0 Age-related osteoporosis without current pathological fracture (principal)
CPT/HCPCS: 97162